=== PATIENT | male | born 1960 | race American Indian/Alaskan Native ===

== ENCOUNTER 2019-02-27 12:16 | Inpatient (IN) ==
--- NOTE | 2019-02-27 12:44 | Emergency Department Note ---
General Adult HPI - General Chief complaint: Weakness Stated complaint: abdominal swelling, weakness Time Seen by Provider: 02/27/19 12:19 Source: patient Mode of arrival: ambulatory Limitations: no limitations - History of Present Illness HPI Narrative: 58-year-old male patient presents to emergency department with recurrent abdominal swelling and tenderness. Nori has a long and protracted history of end-stage liver disease. He's been evaluated in our emergency department twice since 02/19. Each time it was for weakness and abdominal swelling. He underwent paracentesis during each visit. The first time they got over a 7 liters of fluid and the second time they removed 9 L of fluid from his abdomen. Unfortunately, he tells over the last 24 hours the abdominal bloating and pain have recurred. He is currently scheduled to see a color receiver at the end of next week to help manage his endstage liver disease. He denies any systemic fever, sweats, chills, shortness of breath, chest pain, palpitations, nausea, vomiting, diarrhea, or focal weakness. He tells me he had 2 bowel movements earlier today and reports "soft". He denies hematemesis, hematochezia, or hematuria. - Related Data Home Medications Medication Instructions Recorded Confirmed diltiazem ER 120 mg capsule,24 120 mg PO QDAY 01/09/18 07/03/18 hr,extended release furosemide 20 mg tablet 40 mg PO ONCE tab 01/09/18 02/27/19 gabapentin 300 mg capsule 300 mg PO TID 01/09/18 07/03/18 ibuprofen 600 mg tablet 600 mg PO QID PRN 01/09/18 07/03/18 multivitamin tablet 1 tab PO QDAY 01/09/18 07/03/18 omeprazole 20 mg capsule,delayed 20 mg PO QDAY 01/09/18 07/03/18 release potassium chloride ER 20 mEq 20 meq PO QDAY 01/09/18 07/03/18 tablet,extended release thiamine HCl (vitamin B1) 100 mg 100 mg PO QDAY 01/09/18 07/03/18 tablet Mometasone/Formoterol [Dulera 100 2 puff IH BID 01/19/18 07/03/18 Mcg/5 Mcg Inhaler] Spironolactone [Aldactone] 75 mg PO DAILY 06/07/18 02/27/19 Inflatable 15" Cushion 1 mg .ROUTE .MEDSUPPLY 02/27/19 02/27/19 Rifaximin [Xifaxan] 550 mg PO DAILY 02/27/19 02/27/19 buPROPion [Wellbutrin] 75 mg PO DAILY 02/27/19 02/27/19 Allergies Allergy/AdvReac Type Severity Reaction Status Date / Time No Known Drug Allergies Allergy Verified 02/27/19 12:18 Review of Systems All systems ED: reviewed and negative except as stated. Past Medical History - Past Medical History Medical history: Reports: atrial fibrillation, liver disease (end stage), other (alcohol). Denies: DVT, myocardial infarction, pulmonary embolus Psychiatric history: Reports: anxiety, depression - Social History smoking status: Former smoker Alcohol use: Reports: None (For approximately 1 year. Previously I believe was heavier.) Drug use: Reports: none, marijuana (Daily smoker) Physical Exam Limitations: no limitations General appearance: alert, in no apparent distress Head: atraumatic, normocephalic Eye: Present: normal appearance, PERRL, EOMI. Absent: scleral icterus, conjunctival injection ENT: Present: normal oropharynx, mucous membranes moist Neck: Present: trachea midline. Absent: lymphadenopathy Chest: Present: symmetric chest wall rise Respiratory: Present: normal lung sounds bilaterally. Absent: respiratory distress, wheezes, stridor, accessory muscle use, prolonged expiratory phase Cardiovascular: Present: regular rate, normal rhythm. Absent: systolic murmur, diastolic murmur Abdominal: Present: soft, distention, tenderness (to the prior paracentesis puncture sites to the right flank.), diminished bowel sounds (bowel sounds are hard to auscultate due to his large abdomen.), ascites (has considerable fluid shifts with manipulation of his abdomen.), other (high-pitched tympanic sounds heard during percussion of the right upper and lower abdomen.). Absent: guarding Extremities: Present: normal inspection, full ROM, normal capillary refill, pedal edema (+2 pitting edema from ankles up to just below the knees bila teral.). Absent: calf tenderness Back: Present: normal inspection Neurological: Present: alert, oriented X3. Absent: motor sensory deficit Psychiatric: Present: normal affect, normal mood Skin: Present: warm, dry Course Course Narrative: Patient presents to the emergency Department and a history of physical exam was performed. IV was established and laboratory studies were drawn. Repeat ultrasound of the abdomen was obtained showing ongoing moderate simple ascites within the abdomen and pelvis. Paracentesis was ordered and performed yielding 6.6 L of simple appearing slightly hemorrhagic ascites fluid. A sample of this is being sent to lab for ART DISPLAY MAKER and cell count. Upon reevaluation the patient is resting comfortable in mother's room [facility] and feels "a little better". Patient was given 25 mg albumin IV. Review his laboratory studies show the following: CBC with WBC 12.0, RBC 3.75, hemoglobin 11.2, hematocrit 34.0, platelet count 112, 83% segs. No bands. Abnormal RBC morphology. PT 15.6, INR 1.2, PTT 32, CMP showing BUN 25, glucose 122, calcium 8.1, total bilirubin 1.8, AST 48, ALT 70, alkaline phosphatase 164, albumin 3.0. Peritoneal fluid cell count shows cloudy, pink-colored fluid with considerable greater than 50,000 RBCs. Total cell count was 100. Nucleated cells 1126. Neutrophils 66. Lymphocytes 19. Macrophages 15. No other cells reported. Gram stain results showed many polys and few mononuclear WBCs. No organisms were identified. I reached out to the hospitalist (Dr. Joel) about possible admission due to the severity of the patient's symptoms and need for repeat paracentesis. At this time the hospitalist recommended that we optimize outpatient therapy with ensuring he is on his diuretics. He did recommend IV Lasix as a one-time dose prior to discharge. He mentioned discussing the patient's diet ensuring that he is not taking in too much sodium. He also recommended that he would need to see a color receiver for other interventions. I discussed all these findings with the patient at this time he does mention these eating "not very good". He tends to eat a lot of hamburgers. We discussed sodium and his requirement to ingest a low-sodium diet (< 1500 mg). We discussed maximizing his medication utilization. He presents with an entire pill box full of his medications. He is currently supposedly taking her Lasix and spironolactone he was encouraged to do this as an outpatient. Patient was given 60 mg of Lasix IVP. Upon reevaluation patient admits to being out twice to void. He has had an average of 500 mL per time. He is resting comfortably on the emergency room gurney. I reviewed his peritoneal findings once again with my collaborating physician prior to discharge. At this time it was recommended that I speak to either the hospitalist or a gastrologist for further recommendations due to the increased blood cell count in today's peritoneal fluid. I spoke to GI specialist out of [facility] (Dr. Chaudhari) who reviewed the peritoneal findings with me. At this time he did mention that a traumatic tap (greater than 50,000 RBCs) excuse the white blood cell count. At this time he recommended either inpatient management with IV antibiotics or very close outpatient follow-up. He recommended either ceftriaxone IV or ciprofloxacin by mouth. I discussed these findings with the patient at this time he is somewhat hesitant to go home. I reached out to our hospitalist once again about the patient's possible need for admission. At this time Dr. Joel is going to admit the patient. All other orders are treatment decisions will be carried out by the hospitalist during his inpatient stay. Vital Signs Temperature 99.1 F H 02/27/19 12:17 Pulse Rate 100 H 02/27/19 12:17 Respiratory Rate 18 02/27/19 12:17 Blood Pressure 117/79 02/27/19 12:17 Pulse Oximetry (%) 97 02/27/19 12:17 Temperature 99.1 F H 02/27/19 12:17 Pulse Rate 89 02/27/19 20:07 Respiratory Rate 18 02/27/19 19:53 Blood Pressure 126/72 02/27/19 20:02 Pulse Oximetry (%) 93 02/27/19 20:07 Medical Decision Making - Lab Data Lab results reviewed: Yes I reviewed the patient's lab results. Result diagrams: 02/27/19 12:44 02/27/19 12:44 Lab Results 02/27/19 02/27/19 02/27/19 Range/Units 12:44 12:44 12:44 WBC 12.0 H (4.5-11.0) K/mcL RBC 3.75 L (4.50-5.90) M/mcL Hgb 11.2 L (13.5-16.5) g/dL Hct 34.0 L (41.0-55.0) % MCV 90.6 (80.0-100.0) fL MCH 29.9 (26.0-34.0) pg MCHC 33.0 (31.0-36.0) g/dL RDW 15.3 H (11.5-14.5) % Plt Count 112 L (140-440) K/mcL MPV 7.3 L (7.4-10.4) fL Total Counted 100 Seg Neutrophils % 83 H (38-78) % Band Neutrophils % Not Reportable Lymphocytes % 10 L (15-49) % Monocytes % (Manual) 7 (1-12) % Platelet Estimate Decreased A (NORMAL) RBC Morphology Abnorm A (NORMAL) Polychromasia Occ A (NONE SEEN) PT 15.6 H (11.9-14.5) sec INR 1.2 H (0.9-1.1) APTT 32 (20-37) sec Sodium 137 (133-145) mmol/L Potassium 4.2 (3.3-5.1) mmol/L Chloride 103 (96-108) mmol/L Carbon Dioxide 25 (22-30) mmol/L Anion Gap 9.0 (8-16) BUN 25 H (6-20) mg/dl Creatinine 0.7 (0.7-1.2) mg/dl GFR Calculation 103 Glucose 122 H (70-105) mg/dL Calcium 8.1 L (8.6-10.4) mg/dl Total Bilirubin 1.8 H (0.0-1.0) mg/dL AST 48 H (0-37) U/l ALT 70 H (0-40) U/l Alkaline Phosphatase 164 H (39-117) U/L Total Protein 6.1 (5.9-8.4) gm/dL Albumin 3.0 L (3.2-5.2) gm/dL Globulin 3.1 (2.2-3.7) gm/dL Albumin/Globulin Ratio 1.0 (1.0-2.3) Urine Color Urine Appearance Urine pH (5.0-9.0) Ur Specific [place] (1.000-1.035) Urine Protein (NEG) mg/dL Urine Glucose (UA) (NEG) mg/dL Urine Ketones (NEG) mg/dL Urine Occult Blood (<0.03) mg/dL Urine Nitrate (NEG) Urine Bilirubin (NEG) mg/dL Urine Urobilinogen (NEG) mg/dL Ur Leukocyte Esterase (NEG) /uL Urine RBC (0-1) /hpf Urine WBC (0-4) /hpf Ur Squamous Epith Cells (0-4) /hpf Urine Bacteria (0) /hpf Urine Mucus (0) /hpf Fluid Source Fluid Color Fluid Appearance Fluid RBC /cumm Fluid Tot Cell Count Fluid Nucleated Cells /cumm Fluid Neutrophils % Fluid Lymphocytes % Fluid Monocytes Fluid Eosinophils Fluid Basophils Fluid Plasma Cells Fluid Macrophages % Fld Mesothelial Cells 02/27/19 02/27/19 Range/Units 14:58 16:00 WBC (4.5-11.0) K/mcL RBC (4.50-5.90) M/mcL Hgb (13.5-16.5) g/dL Hct (41.0-55.0) % MCV (80.0-100.0) fL MCH (26.0-34.0) pg MCHC (31.0-36.0) g/dL RDW (11.5-14.5) % Plt Count (140-440) K/mcL MPV (7.4-10.4) fL Total Counted Seg Neutrophils % (38-78) % Band Neutrophils % Lymphocytes % (15-49) % Monocytes % (Manual) (1-12) % Platelet Estimate (NORMAL) RBC Morphology (NORMAL) Polychromasia (NONE SEEN) PT (11.9-14.5) sec INR (0.9-1.1) APTT (20-37) sec Sodium (133-145) mmol/L Potassium (3.3-5.1) mmol/L Chloride (96-108) mmol/L Carbon Dioxide (22-30) mmol/L Anion Gap (8-16) BUN (6-20) mg/dl Creatinine (0.7-1.2) mg/dl GFR Calculation Glucose (70-105) mg/dL Calcium (8.6-10.4) mg/dl Total Bilirubin (0.0-1.0) mg/dL AST (0-37) U/l ALT (0-40) U/l Alkaline Phosphatase (39-117) U/L Total Protein (5.9-8.4) gm/dL Albumin (3.2-5.2) gm/dL Globulin (2.2-3.7) gm/dL Albumin/Globulin Ratio (1.0-2.3) Urine Color Yellow Urine Appearance Clear Urine pH 6.0 (5.0-9.0) Ur Specific [place] 1.016 (1.000-1.035) Urine Protein Neg (NEG) mg/dL Urine Glucose (UA) Negative (NEG) mg/dL Urine Ketones Neg (NEG) mg/dL Urine Occult Blood 0.03 A (<0.03) mg/dL Urine Nitrate Neg (NEG) Urine Bilirubin Neg (NEG) mg/dL Urine Urobilinogen 4.0 A (NEG) mg/dL Ur Leukocyte Esterase Neg (NEG) /uL Urine RBC 0 (0-1) /hpf Urine WBC < 1 (0-4) /hpf Ur Squamous Epith Cells < 1 (0-4) /hpf Urine Bacteria 0 (0) /hpf Urine Mucus Few (0) /hpf Fluid Source Peritoneal Fluid Color [place] Fluid Appearance Cloudy Fluid RBC < 12850 /cumm Fluid Tot Cell Count 100 Fluid Nucleated Cells 1126 /cumm Fluid Neutrophils 66 % Fluid Lymphocytes 19 % Fluid Monocytes Not Reportable Fluid Eosinophils Not Reportable Fluid Basophils Not Reportable Fluid Plasma Cells Not Reportable Fluid Macrophages 15 % Fld Mesothelial Cells Not Reportable - Radiology Data Radiology results reviewed: Yes I reviewed the patient's radiology results. Ordering Physician: Roberto Lyn PA-C Date of Service: 02/27/19 Procedure(s): US abdomen limited Accession Number(s): [id number] CLINICAL INFORMATION: Possible Ascites COMPARISON: None. FINDINGS: Moderate ascites seen throughout the abdomen and pelvis IMPRESSION: Moderate simple ascites throughout the abdomen and pelvis. Interpreted and Authenticated by: Armando Mera 02/27/19 Ordering Physician: Roberto Lyn PA-C Date of Service: 02/27/19 Procedure(s): US paracentesis abd w/image Accession Number(s): [id number] Ultrasound-guided paracentesis Clinical history moderate recurrent ascites Technique: The procedure and risks including possibility of bleeding, infection, bowel and parenchymal organ perforation were explained the patient. He understood and wished to proceed. Corrections Nurse scanning demonstrated Ascites in the right lower quadrant which was free of bowel. The skin was marked, prepped and locally anesthetized 1% lidocaine to the level of the parietal peritoneum using a 25-gauge needle. A 18-gauge LEAFEReh needle was then placed under sonographic guidance into the ascites and 6.6 L of slightly hemorrhagic ascites was evaluated. The needle was removed. Postprocedure scanning shows minimal residual ascites. No apparent complication - patient tolerated procedure well. IMPRESSION: Successful ultrasound-guided paracentesis yielding 6.6 L of simple appearing slightly hemorrhagic ascites. Postprocedure scanning shows only minimal residual fluid. Patient tolerated procedure well without apparent complication Interpreted and Authenticated by: Armando Mera 02/27/19 Disposition Pt seen by AUTOMOBILE LEASING SUPERVISOR/PA only: Yes Clinical Impression: Ascites due to alcoholic cirrhosis, End stage liver disease Disposition: Xfer As Inpt ([facility] Condition: Good Instructions: Ascites (ED) Additional Instructions: At this time patient is going be admitted to the hospital under the care of Dr. Montejo. All other treatment decisions or orders will be carried out by the hospitalist. Referrals: Humberto Tripathi ARNP [Primary Care Provider] - Time of Disposition: 20:27
[2019-02-27 13:12] LABS: Hemoglobin 11.2 g/dL (13.5-16.5); Mean Cell Volume 90.6 fL (80.0-100.0); Mean Platelet Volume 7.3 fL (7.4-10.4); Platelet Count 112 K/mcL (140-440); RBC 3.75 M/mcL (4.50-5.90); Red Cell Distribution Width 15.3 % (11.5-14.5)
[2019-02-27] MEDS ORDERED: ALBUMIN HUMAN 25 GM/100 ML BAG IV ONE ×2 (13:16→14:26)
[2019-02-27] MEDS ORDERED: ALBUMIN HUMAN 12.5 GM/50 ML BAG IV ONE (13:21)
[2019-02-27 13:22] LABS: INR 1.2 (0.9-1.1); Prothrombin Time 15.6 sec (11.9-14.5)
[2019-02-27 13:36] LABS: Lymphocytes % 10 % (15-49); Monocytes % (Manual) 7 % (1-12); Platelet Estimate DECREASED (NORMAL); Polychromasia OCC (NONE SEEN); RBC Morphology ABNORM (NORMAL); Segmented Neutrophils % 83 % (38-78)
[2019-02-27 13:41] LABS: ALT/SGPT 70 U/l (0-40); AST/SGOT 48 U/l (0-37); Alkaline Phosphatase 164 U/L (39-117); Bilirubin,Total 1.8 mg/dL (0.0-1.0); Blood Urea Nitrogen 25 mg/dl (6-20); Calcium 8.1 mg/dl (8.6-10.4); Carbon Dioxide 25 mmol/L (22-30); Chloride 103 mmol/L (96-108); Globulin 3.1 gm/dL (2.2-3.7); Glomerular Filtration Rate 103; Glucose 122 mg/dL (70-105)
--- NOTE | 2019-02-27 14:10 | Ultrasound Report ---
CLINICAL INFORMATION: Possible Ascites COMPARISON: None. FINDINGS: Moderate ascites seen throughout the abdomen and pelvis IMPRESSION: Moderate simple ascites throughout the abdomen and pelvis. Interpreted and Authenticated by: Armando Mera 02/27/19
--- NOTE | 2019-02-27 14:31 | Ultrasound Report ---
Ultrasound-guided paracentesis Clinical history moderate recurrent ascites Technique: The procedure and risks including possibility of bleeding, infection, bowel and parenchymal organ perforation were explained the patient. He understood and wished to proceed. Braille Typist scanning demonstrated Ascites in the right lower quadrant which was free of bowel. The skin was marked, prepped and locally anesthetized 1% lidocaine to the level of the parietal peritoneum using a 25-gauge needle. A 18-gauge Yueh needle was then placed under sonographic guidance into the ascites and 6.6 L of slightly hemorrhagic ascites was evaluated. The needle was removed. Postprocedure scanning shows minimal residual ascites. No apparent complication - patient tolerated procedure well. IMPRESSION: Successful ultrasound-guided paracentesis yielding 6.6 L of simple appearing slightly hemorrhagic ascites. Postprocedure scanning shows only minimal residual fluid. Patient tolerated procedure well without apparent complication Interpreted and Authenticated by: Armando Mera 02/27/19
[2019-02-27] MEDS ORDERED: FUROSEMIDE 100 MG/10 ML VIAL IV ONE (16:10)
[2019-02-27 17:01] LABS: Appearance, Body Fluid CLOUDY; Color, Body Fluid PINK; Nucleated Cells,Body Fld 1126 /cumm; RBC, Body Fluid < 50000 /cumm
[2019-02-27 17:11] LABS: Total Cell Count Body Fld 100
[2019-02-27 18:58] LABS: Appearance,Urine CLEAR; Bacteria,Urine 0 /hpf (0); Bilirubin,Urine NEG (NEG); Color,Urine YELLOW; Glucose,Urine (UA) NEGATIVE (NEG); Ketones,Urine NEG (NEG); Leukocyte Esterase,Urine NEG /uL (NEG); Mucus,Urine FEW /hpf (0); Nitrate,Urine NEG (NEG); Protein,Urine NEG (NEG); Specific Gravity,Urine 1.016 (1.000-1.035); Urine Blood 0.03 mg/dL (<0.03); Urine RBC 0 /hpf (0-1); Urine Squamous Epithelial Cell < 1 /hpf (0-4); Urine WBC < 1 /hpf (0-4)
--- NOTE | 2019-02-27 20:27 | Internal Med History&Physical ---
Medical - H&P: [facility] Patient information: Note initiated : 02/27/19 at 8:22 pm Service Date, if different from initiated Date: [] Patient: Dallas Darling a 58 y/o M admitted on for Abdominal Swelling, Weakness. Chief Complaint: [] History of present illness: Mr. Darling is a 58 year old M who presents to ED with abdominal swelling and weakness. 3 weeks ago he started swelling in feet/legs then abdomen. on he came in and had a paracentesis of 9L's and again on the of 9L's. since that time he has had recurrent ascites and came in today where he had 6.6L's removed. has abdominal discomfort from swelling but not severe pain and it is relieved after paracentesis. no fevers/chills. no confusion. His ascites came back with greater than 250 PMN's. case was discussed with GI specialist who discussed treating outpt with cipro vs treating inpt. given his recurrent ED visits will treat inpt and likely repeat paracentsis or u/s evaluation of in 48hrs. he has mild leukocytosis. Review of Systems: pertinent positives as above. denies headache/fever/chills/nausea/vomiting/chest or abdominal pain/cough/dyspnea/diarrhea. remaining 10 point ROS negative Medical - H&P: PMH Medical history: Medical History (Last Updated 02/20/19 @ 13:38 by Jarett Hudson DO) Psoriasis (Chronic) Metacarpal bone fracture (Chronic 10/24/11) Finger dislocation (Chronic 10/05/09) History of hepatitis A (Chronic) Cellulitis (Chronic) Morbid obesity (Chronic) Bilateral presbyopia (Chronic) Regular astigmatism, bilateral (Chronic) Hypermetropia of both eyes (Chronic) Partial retinal tear without detachment (Chronic) After-cataract with vision obscured (Chronic) Headache (Chronic) End stage liver disease (Chronic) Broken skin (Chronic) Anasarca (Chronic) Atrial fibrillation with rapid ventricular response (Chronic) Acute bronchitis (Chronic) Edema (Chronic) Infestation by Sarcoptes scabiei td hominis (Chronic) Chronic obstructive lung disease (Chronic) skilled nursing (current) use of anticoagulants (Chronic) Chronic low back pain (Chronic) Allergic rhinitis (Chronic) GERD (gastroesophageal reflux disease) (Chronic) Abnormal LFTs (liver function tests) (Chronic) Hepatomegaly (Chronic) 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) Hepatitis C (Chronic) Neck pain (Chronic) 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) Atrial fibrillation (Chronic) Alcoholic cirrhosis (Chronic) Nausea (Chronic) Phimosis (Chronic ~09/2017) Lower extremity edema (Acute) Alcohol abuse (Acute) Past Surgical History (Last Updated 07/03/18 @ 13:26 by Mary Church CMA) History of circumcision (Acute) H/O endoscopy (Chronic) History of cataract surgery (Chronic) Family History (Last Reviewed 07/03/18 @ 13:26 by Mary Church CMA) parents with DM's and father with cirrhosis Social History (Last Updated 07/03/18 @ 13:29 by Daniel Valdes MD) q tobacco 8yrs ago no etoh in 18mos uses walker uses [facility] - H&P: Meds Home Medications Medication Instructions Recorded Confirmed Type diltiazem ER 120 mg capsule,24 120 mg PO QDAY 01/09/18 02/27/19 History hr,extended release furosemide 20 mg tablet 40 mg PO ONCE tab 01/09/18 02/27/19 History gabapentin 300 mg capsule 300 mg PO TID 01/09/18 02/27/19 History ibuprofen 600 mg tablet 600 mg PO QID PRN 01/09/18 02/27/19 History multivitamin tablet 1 tab PO QDAY 01/09/18 02/27/19 History omeprazole 20 mg capsule,delayed 20 mg PO QDAY 01/09/18 02/27/19 History release potassium chloride ER 20 mEq 20 meq PO QDAY 01/09/18 02/27/19 History tablet,extended release thiamine HCl (vitamin B1) 100 mg 100 mg PO QDAY 01/09/18 02/27/19 History tablet Mometasone/Formoterol [Dulera 100 2 puff IH BID 01/19/18 02/27/19 History Mcg/5 Mcg Inhaler] Spironolactone [Aldactone] 75 mg PO DAILY 06/07/18 02/27/19 History Inflatable 15" Cushion 1 mg .ROUTE .MEDSUPPLY 02/27/19 02/27/19 History Lactulose [Cephulac] 40 gm PO BID 02/27/19 02/27/19 History Rifaximin [Xifaxan] 550 mg PO DAILY 02/27/19 02/27/19 History buPROPion [Wellbutrin] 75 mg PO DAILY 02/27/19 02/27/19 History Allergies Allergy/AdvReac Type Severity Reaction Status Date / Time No Known Drug Allergies Allergy Verified 02/27/19 12:18 Medical - H&P: Exam - Constitutional Vitals: Temp Pulse Resp BP Pulse Ox 99.1 F H 86 18 126/72 93 02/27/19 12:17 02/27/19 20:20 02/27/19 20:20 02/27/19 20:02 02/27/19 20:20 Exam: General: Alert, Awake, No acute Distress Eyes/N/T: EOMI, anisocoria , Head/Neck: neck supple, normocephalic atraumatic CV: RRR, No murmurs, normal s1/s2 Pulm: Clear b/l, no wheezing/rhonchi/rales Abd: soft, nontender, distended, +BS x4 Ext: no clubbing/cyanosis/edema Neuro: Alert, no focal deficits, moves all extremities, CN 2-12 grossly intact, symmetrical strength b/l upper/lower, sensations intact b/l upper/lower Skin: warm/dry Medical - H&P: Reslt - Labs CBC & Chem 7: 02/27/19 12:44 02/27/19 12:44 Labs: Short CBC 02/27/19 Range/Units 12:44 WBC 12.0 H (4.5-11.0) K/mcL Hgb 11.2 L (13.5-16.5) g/dL Hct 34.0 L (41.0-55.0) % Plt Count 112 L (140-440) K/mcL BMP 02/27/19 12:44 Sodium 137 Potassium 4.2 Chloride 103 Carbon Dioxide 25 BUN 25 H Creatinine 0.7 Glucose 122 H Calcium 8.1 L Liver Function 02/27/19 Range/Units 12:44 Total Bilirubin 1.8 H (0.0-1.0) mg/dL AST 48 H (0-37) U/l ALT 70 H (0-40) U/l Alkaline Phosphatase 164 H (39-117) U/L Albumin 3.0 L (3.2-5.2) gm/dL Urine 02/27/19 Range/Units 16:00 Urine Color Yellow Urine Appearance Clear Urine pH 6.0 (5.0-9.0) Ur Specific [place] 1.016 (1.000-1.035) Urine Protein Neg (NEG) mg/dL Urine Glucose (UA) Negative (NEG) mg/dL Medical - H&P: A/P - Narrative A/P Narrative: Assessment: *Probable SBP: PMNs >250 but do not have culture back yet *Ascites/Peripheral edema: 2/2 above with underlying etoh cirrosis *Etoh cirrhosis: no etoh in 18mos -follows with dr. Napoles -MELD=13(6%) *COPD (2L prn daytime) *KARLENE on CPAP: *Chr LBP: *GERD: * Plan: -Rocephin -pending cx -lasix/albumin -repeat abd u/s or paracentesis in 48hrs -f/u with dr. Cortez on monday -home CPAP -switch PPI to H2-andres -TEDs/elevate legs while in bed -ppx: lovenox full code
[2019-02-27] MEDS ORDERED: MOMETASONE IH SCH (21:25)
[2019-02-27] MEDS ORDERED: ONDANSETRON 4 MG/2 ML VIAL IV PRN (21:25)
[2019-02-27] MEDS ORDERED: PROMETHAZINE 25 MG/ML VIAL IV PRN (21:25)
[2019-02-27] MEDS ORDERED: [UNRECOGNIZED DRUG - OTHER] IH SCH (21:25)
[2019-02-27] MEDS ORDERED: IPRATROPIUM/ALBUTEROL 3 ML AMPUL.NEB NEB PRN (21:25)
[2019-02-27] MEDS ORDERED: FORMOTEROL IH SCH (21:25)
[2019-02-27] MEDS: GABAPENTIN 300 MG CAPSULE PO SCH (22:22)
[2019-02-27] MEDS ORDERED: LACTULOSE 20 GM/30 ML ORAL.SOL ONE (22:39)
[2019-02-27] MEDS ORDERED: cefTRIAXone 1 GM VIAL ONE (22:39)
[2019-02-27] MEDS: DOCUSATE SODIUM 100 MG CAPSULE PO SCH (22:46)
[2019-02-27] MEDS: LACTULOSE 20 GM/30 ML ORAL.SOL PO SCH (22:46)
[2019-02-27] MEDS: cefTRIAXone 2 GM in DEXTROSE 5% IN WATER 50 ML IV SCH (22:46)
[2019-02-27] MEDS: FAMOTIDINE 20 MG TABLET PO SCH (22:46)
[2019-02-27] MEDS: 0.9 % SODIUM CHLORIDE 10 ML SYRINGE IV SCH (22:50)
[2019-02-27 22:52] LABS: Total Protein,Peritoneal Fluid 0.3 gm/dL
[2019-02-27 23:10] LABS: INR 1.3 (0.9-1.1); Prothrombin Time 15.9 sec (11.9-14.5)
[2019-02-28] MEDS ORDERED: HYDROcodone/APAP 10/325MG TABLET PO ONE (01:31)
[2019-02-28] MEDS: HYDROcodone/APAP 10/325MG TABLET PO SCH ×4 (01:31→19:20)
[2019-02-28] MEDS: 0.9 % SODIUM CHLORIDE 10 ML SYRINGE IV SCH ×3 (05:24→21:10)
[2019-02-28 07:14] LABS: Basophils # (Auto) 0 K/mcL (0.0-0.3); Basophils % (Auto) 0 % (0.0-2.0); Eosinophils # (Auto) 0 K/mcL (0.0-0.7); Eosinophils % (Auto) 0.5 % (0.0-7.0); Granulocytes % (Auto) 79.2 % (38.0-78.0); Hematocrit 28.7 % (41.0-55.0); Hemoglobin 9.5 g/dL (13.5-16.5); Lymphocytes # (Auto) 0.7 K/mcL (1.5-4.8); Lymphocytes % (Auto) 9.9 % (15.5-49.0); Mean Cell Volume 91.1 fL (80.0-100.0); Mean Corpuscular HGB Conc 33.2 g/dL (31.0-36.0); Mean Platelet Volume 7.5 fL (7.4-10.4); Monocytes # (Auto) 0.7 K/mcL (0.1-0.9); Monocytes % (Auto) 10.4 % (1.0-12.0); Platelet Count 95 K/mcL (140-440); RBC 3.15 M/mcL (4.50-5.90); Red Cell Distribution Width 15.1 % (11.5-14.5); WBC 7.2 K/mcL (4.5-11.0)
--- NOTE | 2019-02-28 07:21 | Internal Med Progress Note ---
Medical - PN: Subj Patient information: Note initiated : 02/28/19 at 7:15 am Service Date, if different from initiated Date: [] Patient: Dallas Darling a 58 y/o M admitted on 02/27/19 for Abdominal Swelling, Weakness. Chief Complaint: [] Interval history: Mr. Darling is a 58 year old M who presents to ED with abdominal swelling and weakness. 3 weeks ago he started swelling in feet/legs then abdomen. on he came in and had a paracentesis of 9L's and again on the of 9L's. since that time he has had recurrent ascites and came in today where he had 6.6L's removed. has abdominal discomfort from swelling but not severe pain and it is relieved after paracentesis. no fevers/chills. no confusion. His ascites came back with greater than 250 PMN's. case was discussed with GI specialist who discussed treating outpt with cipro vs treating inpt. given his recurrent ED visits will treat inpt and likely repeat paracentsis or u/s evaluation of in 48hrs. he has mild leukocytosis. 02/28 Doing much better today. Feels like his swelling is improved in his legs. No abdominal pain. No nausea vomiting. Occasional cough but no other complaints. Review of Systems: denies headache/fever/chills/nausea/vomiting/chest or abdominal pain/dyspnea/diarrhea. Otherwise see above. - Constitutional Vitals: Vital Signs Temp Pulse Resp BP Pulse Ox 99.0 F 80 20 115/74 94 02/28/19 04:00 02/28/19 06:51 02/28/19 04:00 02/28/19 04:00 02/28/19 04:00 Period Temp Pulse Resp BP Sys/Estrella Pulse Ox Last 24 Hr 98.3 F-99.1 F 79-100 18-20 111-146/64-81 92-99 Intake and Output 02/27/19 02/28/19 02/28/19 21:59 05:59 13:59 Intake Total 200 1010 Output Total 1850 975 Balance -1650 35 Weight 102.965 kg Intake & Output: Intake & Output 02/27/19 02/28/19 02/28/19 21:59 05:59 13:59 Intake Total 200 1010 Output Total 1850 975 Balance -1650 35 Weight 102.965 kg Intake: IV 200 50 Rocephin 2 gm In Dextrose 5% in 50 Water 50 ml @ 100 mls/hr IV Q24H [facility] Rx#:[id number] Oral 960 Output: Void Amount 1850 975 Other: Meal Dinner Percent of Meal Consumed 100% Feeding Ability Independent Urine Appearance Clear Urine Color Dark Yellow Exam: General: Alert, Awake, No acute Distress Eyes/N/T: EOMI, Head/Neck: neck supple, CV: RRR, No murmurs, Pulm: Clear b/l, no wheezing/rhonchi/rales Abd: soft, nontender, distended, +BS x4 Ext: no clubbing/cyanosis, 1-2+ RLE, 2-3+ LLE Neuro: Alert, no focal deficits, moves all extremities, Skin: warm/dry Medical - PN: Obj Da - Labs CBC & Chem 7: 02/28/19 04:29 02/28/19 04:29 Labs: Abnormal Lab Results 02/28/19 02/27/19 02/27/19 04:29 22:09 16:00 WBC RBC 3.15 L Hgb 9.5 L Hct 28.7 L RDW 15.1 H Plt Count 95 L MPV Gran % 79.2 H Lymph % (Auto) 9.9 L Lymph # (Auto) 0.7 L Seg Neutrophils % Lymphocytes % Platelet Estimate RBC Morphology Polychromasia PT 15.9 H INR 1.3 H BUN Glucose Calcium Total Bilirubin AST ALT Alkaline Phosphatase Albumin Urine Occult Blood 0.03 A Urine Urobilinogen 4.0 A 02/27/19 02/27/19 02/27/19 12:44 12:44 12:44 WBC 12.0 H RBC 3.75 L Hgb 11.2 L Hct 34.0 L RDW 15.3 H Plt Count 112 L MPV 7.3 L Gran % Lymph % (Auto) Lymph # (Auto) Seg Neutrophils % 83 H Lymphocytes % 10 L Platelet Estimate Decreased A RBC Morphology Abnorm A Polychromasia Occ A PT 15.6 H INR 1.2 H BUN 25 H Glucose 122 H Calcium 8.1 L Total Bilirubin 1.8 H AST 48 H ALT 70 H Alkaline Phosphatase 164 H Albumin 3.0 L Urine Occult Blood Urine Urobilinogen Meds: Medications Hydrocodone Bitart/Acetaminophen ([place] 10/325mg) 1 tab PO Q6H [facility] Last Admin: 02/28/19 01:31 Dose: 1 tab Documented by: Albuterol/Ipratropium (Duoneb) 3 ml NEB Q4HRT PRN PRN Reason: Bronchospasm Bupropion HCl (Wellbutrin) 75 mg PO DAILY [facility] Diltiazem HCl (Cardizem Cd) 120 mg PO QDAY [facility] Docusate Sodium (Colace) 100 mg PO BID [facility] Last Admin: 02/27/19 22:46 Dose: Not Given Documented by: Enoxaparin Sodium (Lovenox) 40 mg SQ DAILY [facility] Famotidine (Pepcid) 20 mg PO BID [facility] Last Admin: 02/27/19 22:46 Dose: Not Given Documented by: Furosemide (Lasix) 40 mg IV ONCE ONE Stop: 02/28/19 08:01 Gabapentin (Neurontin) 300 mg PO TID [facility] Last Admin: 02/27/19 22:22 Dose: Not Given Documented by: Albumin Human (Buminate) 12.5 gm in 50 mls @ 100 mls/hr IV ONCE ONE Stop: 02/28/19 08:29 Ceftriaxone Sodium 2 gm/ (Dextrose) 50 mls @ 100 mls/hr IV Q24H [facility] Stop: 03/04/19 21:24 Last Infusion: 02/28/19 01:32 Dose: Infused Documented by: Lactulose (Cephulac) 40 gm PO BID [facility] Last Admin: 02/27/19 22:46 Dose: 40 gm Documented by: Ondansetron HCl (Zofran) 4 mg IV Q6HP PRN PRN Reason: Nausea And Vomiting Dulera 100 Mcg/5 Mcg (Inhaler) 2 dose INH BID [facility] Potassium Chloride (Kdur) 20 meq PO QAMCC [facility] Promethazine HCl (Phenergan) 12.5 mg IV Q6HP PRN PRN Reason: Nausea And Vomiting Sodium Chloride (Saline Flush) 10 ml IV Q8 [facility] Last Admin: 02/28/19 05:24 Dose: 10 ml Documented by: Spironolactone (Aldactone) 100 mg PO DAILY [facility] Thiamine HCl (Vitamin B1) 100 mg PO QDAY [facility] Medical - PN: A/P - Time Spent With Patient Total time spent is greater than 50% in coordination of care (as documented) at patient's floor/unit and/or counseling patient: - Narrative A/P Narrative: Assessment: *Probable SBP: PMNs >250 but do not have culture back yet, -leukocytosis resolved *Ascites/Peripheral edema: 2/2 above with underlying etoh cirrosis *Etoh cirrhosis: no etoh in 18-months per pt -follows with dr. Napoles -MELD=13(6%) *COPD (2L prn daytime) *KARLENE on CPAP: *Chr LBP: *GERD: * Plan: -Rocephin -pending cx -lasix today - may repeat abd u/s or paracentesis in 48hrs from initial test -f/u with dr. Wong on monday -home CPAP -switch PPI to H2-andres -TEDs/elevate legs while in bed -ppx: lovenox full code Medical - PN: Qual - VTE Deep Vein Thrombosis/Pulmonary Embolism Present on Admission: No
[2019-02-28 07:37] LABS: ALT/SGPT 61 U/l (0-40); AST/SGOT 52 U/l (0-37); Albumin/Globulin Ratio 1.2 (1.0-2.3); Alkaline Phosphatase 157 U/L (39-117); Bilirubin,Direct 0.7 mg/dL (0.0-0.3); Bilirubin,Total 1.7 mg/dL (0.0-1.0); Blood Urea Nitrogen 23 mg/dl (6-20); Carbon Dioxide 26 mmol/L (22-30); Chloride 97 mmol/L (96-108); Globulin 2.6 gm/dL (2.2-3.7); Glomerular Filtration Rate 103; Glucose 91 mg/dL (70-105); Lactate Dehydrogenase 266 U/L (94-250); Phosphorous 3.4 mg/dL (2.7-4.5); Triglycerides 51 mg/dl (<150); Uric Acid 3.1 mg/dL (2.5-8.0)
[2019-02-28] MEDS: POTASSIUM CHLORIDE 20 MEQ TABLET PO SCH (08:00)
[2019-02-28] MEDS ORDERED: FUROSEMIDE 40 MG/4 ML VIAL IV ONE ×2 (08:00→15:00)
[2019-02-28] MEDS ORDERED: ALBUMIN HUMAN 12.5 GM/50 ML BAG IV ONE (08:00)
[2019-02-28] MEDS: GABAPENTIN 300 MG CAPSULE PO SCH ×3 (08:20→21:09)
[2019-02-28] MEDS: THIAMINE 100 MG TABLET PO SCH (08:20)
[2019-02-28] MEDS: FAMOTIDINE 20 MG TABLET PO SCH ×2 (08:20→21:09)
[2019-02-28] MEDS: ENOXAPARIN 40 MG/0.4 ML SYRINGE SQ SCH (08:20)
[2019-02-28] MEDS: RIFAXIMIN 550 MG TABLET PO SCH (08:20)
[2019-02-28] MEDS: DOCUSATE SODIUM 100 MG CAPSULE PO SCH ×2 (08:20→21:09)
[2019-02-28] MEDS: SPIRONOLACTONE 25 MG TABLET PO SCH (08:21)
[2019-02-28] MEDS: DILTIAZEM 120 MG CAP.XL.24H PO SCH (08:21)
[2019-02-28] MEDS: LACTULOSE 20 GM/30 ML ORAL.SOL PO SCH ×2 (08:21→21:09)
[2019-02-28] MEDS ORDERED: LACTULOSE 20 GM/30 ML ORAL.SOL PO ONE (08:23)
[2019-02-28] MEDS ORDERED: buPROPion 75 MG TABLET PO SCH (09:00)
--- NOTE | 2019-02-28 12:47 | Ultrasound Report ---
CLINICAL INFORMATION: History of cirrhosis and ascites. Evaluate for portal vein thrombosis COMPARISON: None. FINDINGS: The liver is decreased in size with irregular cortical surface and inhomogeneous elevated echotexture compatible with cirrhosis. The portal vein is mildly enlarged - no evidence of thrombus. Normal hepatopedal flow direction appreciated. Hepatic veins are patent and demonstrate normal flow. IMPRESSION: Portal vein is patent with normal hepatopedal flow direction. Cirrhosis Interpreted and Authenticated by: Armando Mera 02/28/19
[2019-02-28] MEDS ORDERED: cefTRIAXone 2 GM VIAL ONE (14:41)
[2019-02-28] MEDS: cefTRIAXone 2 GM in DEXTROSE 5% IN WATER 50 ML IV SCH (14:45)
[2019-03-01] MEDS: HYDROcodone/APAP 10/325MG TABLET PO SCH ×2 (02:04→07:29)
[2019-03-01] MEDS: 0.9 % SODIUM CHLORIDE 10 ML SYRINGE IV SCH (05:46)
[2019-03-01] MEDS: POTASSIUM CHLORIDE 20 MEQ TABLET PO SCH (07:41)
--- NOTE | 2019-03-01 08:06 | Discharge Summary ---
Medical - DS: Prov Patient information: Note initiated : 03/01/19 at 8:03 am Service Date, if different from initiated Date: [] Patient: Dallas Darling 58 y/o M admitted on 02/27/19 for Abdominal Swelling, Weakness. Chief Complaint: [] Date of admission: 02/27/19 21:20 Discharge date: 03/01/19 Primary care physician: SOFÍA Hopkins Consults: 02/27/19 Consult to Physician [CONS] Stat Comment: Consulting Provider: Pillo Joel Reason For Exam: Physician to Consult Medical - DS: Meds - Discharge Medications Prescriptions: Spironolactone [Aldactone] 100 mg PO DAILY #30 tab Transmission Status: Pending to [facility] #[id number] Ciprofloxacin [Cipro] 500 mg PO BID #14 tab Transmission Status: Pending to [facility]ORE #[id number] Furosemide [Lasix] 40 mg PO DAILY #30 tab Transmission Status: Pending to [facility] #[id number] Famotidine [Pepcid] 20 mg PO BID #60 tab Transmission Status: Pending to [facility] #[id number] Active and Home Medications: Home Medications diltiazem HCl 120 mg capsule,24 hr,extended release 120 mg PO QDAY 01/09/18 [History Confirmed 02/27/19 Last Taken 02/27/19 09:00] gabapentin 300 mg capsule 300 mg PO TID 01/09/18 [History Confirmed 02/27/19 Last Taken 02/27/19 19:30] multivitamin 1 tab PO QDAY 01/09/18 [History Confirmed 02/27/19 Last Taken 02/27/19 09:00] potassium chloride 20 mEq tablet,extended release 10 meq PO QHS 01/09/18 [History Confirmed 02/27/19 Last Taken 02/27/19 19:30] thiamine HCl (vitamin B1) 100 mg tablet 100 mg PO QDAY 01/09/18 [History Confirmed 02/27/19 Last Taken 02/27/19 09:00] Mometasone/Formoterol [Dulera 100 Mcg/5 Mcg Inhaler] 2 puff IH BID PRN 01/19/18 [History Confirmed 02/27/19 Last Taken 01/24/18] HYDROcodone/ACETAMINOPHEN [Hydrocodone-Acetamin 10-325 mg] 1 tab PO Q6H 02/27/19 [History Confirmed 02/27/19 Last Taken 02/27/19 19:30] Lactulose [Cephulac] 40 gm PO BID 02/27/19 [History Confirmed 02/27/19 Last King en 02/27/19 09:00] Rifaximin [Xifaxan] 550 mg PO BID 02/27/19 [History Confirmed 02/27/19 Last Taken 02/27/19 19:30] buPROPion [Wellbutrin] 75 mg PO BID 02/27/19 [History Confirmed 02/27/19 Last Taken 02/27/19 19:30] Ciprofloxacin [Cipro] 500 mg PO BID #14 tab 03/01/19 [Rx Last Taken Unknown] Famotidine [Pepcid] 20 mg PO BID #60 tab 03/01/19 [Rx Last Taken Unknown] Furosemide [Lasix] 40 mg PO DAILY #30 tab 03/01/19 [Rx Last Taken Unknown] Spironolactone [Aldactone] 100 mg PO DAILY #30 tab 03/01/19 [Rx Last Taken Unknown] Medical - DS: Hosp Hospital Course: Discharge diagnosis *CNNA: PMNs >250 Cx negative, continue 7 day oral cipro. *Ascites/Peripheral edema: 2/2 above with underlying etoh cirrosis *Etoh cirrhosis: no etoh in 18-months per pt -follows with dr. Napoles 03/01 am -MELD=13(6%) *COPD (2L prn daytime) *KARLENE on CPAP: Brief hospital course Mr. Darling is a 58 year old M who presents to ED with abdominal swelling and weakness. 3 weeks ago he started swelling in feet/legs then abdomen. on he came in and had a paracentesis of 9L's and again on the 8th of 9L's. since that time he has had recurrent ascites and came in today where he had 6.6L's removed. has abdominal discomfort from swelling but not severe pain and it is relieved after paracentesis. no fevers/chills. no confusion. His ascites came back with greater than 250 PMN's. case was discussed with GI specialist who discussed treating outpt with cipro vs treating inpt. given his recurrent ED visits will treat inpt and likely repeat paracentsis or u/s evaluation of in 48hrs. he has mild leukocytosis. 02/28 Doing much better today. Feels like his swelling is improved in his legs. No abdominal pain. No nausea vomiting. Occasional cough but no other complaints. 03/01-patient doing well. No overnight events. No concerns per staff. Discharging today with follow-up with outpatient GI. Continue Aldactone/Lasix. Continue lactulose. Continue additional 7 days oral ciprofloxacin for CNNA Discharge diagnosis: . - Time Spent with Patient Total time spent providing and/or coordinating discharge services: Greater than 30 minutes Medical - DS: Exam - Constitutional Vitals: Vital Signs Temp Pulse Resp BP Pulse Ox 03/01/19 07:09 72 03/01/19 07:06 98.6 F 20 122/76 96 03/01/19 04:00 98.5 F 87 16 129/79 94 02/28/19 23:47 98.2 F 85 18 115/75 94 02/28/19 20:00 98.4 F 88 16 120/72 94 02/28/19 16:00 98.8 F 85 20 123/78 97 02/28/19 12:00 98.3 F 81 20 117/69 94 Intake and Output 02/28/19 03/01/19 03/01/19 21:59 05:59 13:59 Intake Total 800 700 Output Total 400 150 Balance 400 550 Intake: Oral 800 700 Output: Void Amount 400 150 Other: Urine Appearance Clear Urine Color Light Terri Light Terri # Bowel Movements 1 Weight 230 lb Medical - DS: Data Labs on day of discharge: Labs from last 24 hours 03/01/19 03/01/19 04:04 04:04 WBC Pending RBC Pending Hgb Pending Hct Pending MCV Pending MCH Pending MCHC Pending RDW Pending Plt Count Pending MPV Pending Sodium Pending Potassium Pending Chloride Pending Carbon Dioxide Pending Anion Gap Pending BUN Pending Creatinine Pending GFR Calculation Pending Glucose Pending Uric Acid Pending Calcium Pending Phosphorus Pending Magnesium Pending Total Bilirubin Pending Direct Bilirubin Pending GGT Pending AST Pending ALT Pending Alkaline Phosphatase Pending Lactate Dehydrogenase Pending Total Protein Pending Albumin Pending Globulin Pending Albumin/Globulin Ratio Pending Triglycerides Pending Preliminary micro results at discharge 02/27/19 14:58 Body Fluid Culture - Preliminary Peritoneal Fluid Medical - DS: A/P - Patient/Caregiver Discharge Instructions Activity: resume usual activities as tolerated Diet: Low Sodium (2gm) Additional Instructions: Follow-up Dr. Wong 03/18 9 AM Continue Lasix spironolactone continue lactulose as advised Continue ciprofloxacin for 7 more days Return to ER if abdominal pain, fever chills or mental status change noted Prescriptions: Spironolactone [Aldactone] 100 mg PO DAILY #30 tab Transmission Status: Pending to [facility] #[id number] Ciprofloxacin [Cipro] 500 mg PO BID #14 tab Transmission Status: Pending to [facility] #[id number] Furosemide [Lasix] 40 mg PO DAILY #30 tab Transmission Status: Pending to [facility] #[id number] Famotidine [Pepcid] 20 mg PO BID #60 tab Transmission Status: Pending to [facility] #[id number] - Follow up Plan Follow up with: Humberto Tripathi ARNP [Primary Care Provider] - Disposition: Home, Self-Care Prognosis: Good Rehab Potential: Fair I certify that the patient requires SNF services: No Overall status at discharge: patient is progressing back to baseline Medical - DS: Qual - VTE Deep Vein Thrombosis/Pulmonary Embolism Present on Admission: No
[2019-03-01] MEDS: LACTULOSE 20 GM/30 ML ORAL.SOL PO SCH (08:24)
[2019-03-01] MEDS: SPIRONOLACTONE 25 MG TABLET PO SCH (08:25)
[2019-03-01] MEDS: FAMOTIDINE 20 MG TABLET PO SCH (08:26)
[2019-03-01] MEDS: ENOXAPARIN 40 MG/0.4 ML SYRINGE SQ SCH (08:26)
[2019-03-01] MEDS: GABAPENTIN 300 MG CAPSULE PO SCH (08:26)
[2019-03-01] MEDS: DILTIAZEM 120 MG CAP.XL.24H PO SCH (08:26)
[2019-03-01] MEDS: THIAMINE 100 MG TABLET PO SCH (08:26)
[2019-03-01] MEDS: DOCUSATE SODIUM 100 MG CAPSULE PO SCH (08:26)
[2019-03-01] MEDS: RIFAXIMIN 550 MG TABLET PO SCH (08:26)
--- NOTE | 2019-03-01 15:10 | Non-GYN Cytology Report ---
NON PARATRANSIT DRIVER SPECIMEN NG DX CATEGORY Negative MICROSCOPIC DIAGNOSIS PERITONEAL FLUID, PARACENTESIS: -- MARKED ACUTE INFLAMMATION AND REACTIVE MESOTHELIAL CELLS. -- NO ATYPICAL OR MALIGNANT CELLS IDENTIFIED. (DMT:keren) MICROSCOPIC DESCRIPTION A thinprep monolayer slide, Santos-Giemsa stained cytospin slide, Diff Quik stained cytospin slide, H/E stained cytospin slide and a cell block slide are reviewed. Each contains numerous segmented neutrophils, few macrophages, lymphocytes, red blood cells and reactive mesothelial cells. No atypical or malignant cells are identified. (DMT:keren) CLINICAL HISTORY Abdominal swelling; weakness; ascites. EXTERNAL COMMENT ~850 mL pink fluid: 1 thinprep, 1 H/E, 1 Diff Quik, 1 Santos Giemsa, 1 cell block Electronically Signed by: David Roca M.D.
== END 2019-03-01 09:00 | disposition home or self-care (01) | DRG 434 ==
LOC: ED 12:16 → MEDSUR 21:18
PROVIDERS: ADMIT Internal Medicine; ATTEND Internal Medicine

== ENCOUNTER 2019-03-28 21:42 | Inpatient (IN) ==
[2019-03-28 23:08] LABS: Basophils # (Auto) 0 K/mcL (0.0-0.3); Basophils % (Auto) 0 % (0.0-2.0); Eosinophils # (Auto) 0.1 K/mcL (0.0-0.7); Granulocytes % (Auto) 74.5 % (38.0-78.0); Hematocrit 36.3 % (41.0-55.0); Hemoglobin 11.7 g/dL (13.5-16.5); Lymphocytes # (Auto) 1.5 K/mcL (1.5-4.8); Lymphocytes % (Auto) 15.8 % (15.5-49.0); Mean Cell Volume 84.4 fL (80.0-100.0); Mean Corpuscular HGB Conc 32.3 g/dL (31.0-36.0); Mean Platelet Volume 8.4 fL (7.4-10.4); Monocytes # (Auto) 0.8 K/mcL (0.1-0.9); Monocytes % (Auto) 8.7 % (1.0-12.0); Platelet Count 106 K/mcL (140-440); Red Cell Distribution Width 17.9 % (11.5-14.5); WBC 9.4 K/mcL (4.5-11.0)
[2019-03-28 23:52] LABS: ALT/SGPT 81 U/l (0-40); AST/SGOT 65 U/l (0-37); Albumin 2.6 gm/dL (3.2-5.2); Albumin/Globulin Ratio 0.7 (1.0-2.3); Alkaline Phosphatase 236 U/L (39-117); Bilirubin,Total 1.4 mg/dL (0.0-1.0); Blood Urea Nitrogen 24 mg/dl (6-20); Calcium 7.9 mg/dl (8.6-10.4); Carbon Dioxide 20 mmol/L (22-30); Chloride 102 mmol/L (96-108); Globulin 3.6 gm/dL (2.2-3.7); Glomerular Filtration Rate 93; Glucose 126 mg/dL (70-105)
--- NOTE | 2019-03-29 00:05 | Emergency Department Note ---
Altered Mental Status HPI - General Chief Complaint: Altered Mental Status Stated Complaint: confusion Time Seen by Provider: 03/28/19 21:58 Source: patient Mode of arrival: EMS Limitations: no limitations - History of Present Illness HPI Narrative: This 58-year-old comes emergency room brought by emergency medical services after [facility] has indicated that there is no way for them to deal with this patient's medical needs and concerns with delirious condition Which has progressed rapidly and just a few hours and marked abdominal d istention. Patient has a history of recurring ascites and anasarca. Patient's daughter is his power of district attorney and is here today, Jose santoyo. She has been out of town for a couple of weeks to [place]. Upon return she notices a market difference in her father. She reports that he [facility] until last evening when he checked himself out and insisted on leaving AGAINST MEDICAL ADVICE, had a friend take him home. He is unable to ambulate and was helped into his home. Cassie álvaro, a family friend that was helping take care of him while Jose was awake, brought him back to [facility] this morning. They arranged for him to go to [facility] this afternoon. [facility] called EMS because of his changes and inability to take care of him and sent him here. Jose indicates that he has been taking his medications that have been prescribed including the lactulose, etc. She reports that his talking a lot and about things of the past even remote is not normal for him. Jose also indicates that hospice or palliative care has not been discussed as a family or with her to any significant length and she is interested in this. Patient currently has full CODE STATUS but she understands and is wanting to move towards DNR. REVIEW OF SYSTEMS: Because of patient's mental status changes/delirium (almost assuredly from hepatic encephalopathy), the below answers were obtained from Jose. No fever, chills, sweats, chest pain, shortness of breath, nausea, vomiting, diarrhea, dysuria. Patient is incontinent of bowel and bladder which is also new. No back pain. Significant and major weakness such that he is unable to hold himself up on his legs whereas he was walking by himself even as recently as 9 or 10 days ago. - Related Data Home Medications Medication Instructions Recorded Confirmed diltiazem HCl 120 mg capsule,24 120 mg PO QDAY 01/09/18 03/28/19 hr,extended release gabapentin 300 mg capsule 300 mg PO TID 01/09/18 03/28/19 multivitamin 1 tab PO QDAY 01/09/18 03/28/19 thiamine HCl (vitamin B1) 100 mg 100 mg PO QDAY 01/09/18 03/28/19 tablet Mometasone/Formoterol [Dulera 100 2 puff IH BID PRN 01/19/18 03/28/19 Mcg/5 Mcg Inhaler] Lactulose [Cephulac] 20 gm PO BID 02/27/19 03/28/19 Rifaximin [Xifaxan] 550 mg PO BID 02/27/19 03/28/19 buPROPion [Wellbutrin] 75 mg PO BID 02/27/19 03/28/19 Albuterol Sulfate [Proair 90 mcg IH ONCE PRN 03/28/19 03/28/19 Respiclick] Omeprazole [PriLOSEC] 20 mg PO ONCE 03/28/19 03/28/19 Previous Rx's Medication Instructions Recorded Furosemide [Lasix] 40 mg PO DAILY #30 tab 03/01/19 Spironolactone [Aldactone] 100 mg PO DAILY #30 tab 03/01/19 Allergies Allergy/AdvReac Type Severity Reaction Status Date / Time No Known Drug Allergies Allergy Verified 02/27/19 12:18 Past Medical History - Past Medical History [facility] Narrative: Medical History (Last Updated 03/29/19 @ 00:18 by Jarett Hudson DO) residential (current) use of anticoagulants (Chronic) End stage liver disease (Chronic) Alcoholic cirrhosis (Chronic) Ascites due to alcoholic cirrhosis (Chronic) Atrial fibrillation with rapid ventricular response (Chronic) Psoriasis (Chronic) Edema of both lower extremities (Chronic) Chronic obstructive lung disease (Chronic) Abnormal LFTs (liver function tests) (Chronic) Morbid obesity (Chronic) Anasarca (Chronic) Lower extremity edema (Chronic) Chronic low back pain (Chronic) GERD (gastroesophageal reflux disease) (Chronic) Allergic rhinitis (Chronic) Hepatomegaly (Chronic) Gastritis due to alcohol without hemorrhage (Resolved) Hepatitis C (Chronic) Alcohol abuse (Chronic) Acute bronchitis (Resolved) Cellulitis (Resolved) Headache (Resolved) Neck pain (Resolved) Partial retinal tear without detachment (Resolved) After-cataract with vision obscured (Inactive) Bilateral presbyopia (Inactive) 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 Denies: DVT, myocardial infarction, pulmonary embolus Psychiatric history: Reports: anxiety, depression - Social History smoking status: Former smoker Alcohol use: Reports: None (Since early 2017. Previously was heavy.) Drug use: Reports: none, marijuana (Daily smoker) Physical Exam Limitations: no limitations General appearance: alert, in no apparent distress Head: atraumatic, normocephalic Eye: Present: EOMI ENT: Present: mucous membranes dry Neck: Present: trachea midline. Absent: lymphadenopathy, thyromegaly Chest: Present: symmetric chest wall rise Respiratory: Present: normal lung sounds bilaterally. Absent: respiratory distress, wheezes, stridor, accessory muscle use, prolonged expiratory phase Cardiovascular: Present: regular rate, normal rhythm. Absent: systolic murmur, diastolic murmur Abdominal: Present: soft, distention, rigidity, other (Lower abdominal wall is with piel d'orange pitting edema.). Absent: tenderness, guarding, rebound, normal bowel sounds Abdominal tenderness: Present: diffuse, mild Extremities: Present: pedal edema, pretibial edema (3/4), other ( trace pitting into the distal thighs left more than the right) Back: Absent: CVA tenderness (R), CVA tenderness (L) Neurological: Present: alert Patient oriented to: Present: person. Absent: place, time Speech: Present: fluid speech Cranial nerves: EOM function (II, III, IV, ): Normal Cerebellar function: other (2-week and unable) Motor strength - LUE: 3/5 Motor strength - RUE: 3/5 Motor strength - LLE: 3/5 Motor strength - RLE: 3/5 Coma Scale Eye Opening: Spontaneous Coma Scale Motor Response: Obeys Commands Coma Scale Verbal Response: Confused Coma Scale Total: 14 Psychiatric: Present: other (Rather talkative). Absent: depressed, agitated, anxious, tearful, poor eye contact Skin: Present: warm, dry Course Vital Signs Temperature 97.9 F 03/28/19 21:43 Pulse Rate 100 H 03/28/19 21:43 Respiratory Rate 18 03/28/19 21:43 Blood Pressure 112/72 03/28/19 21:43 Pulse Oximetry (%) 97 03/28/19 21:43 Temperature 97.9 F 03/28/19 21:43 Pulse Rate 99 H 03/28/19 23:51 Respiratory Rate 23 H 03/28/19 23:16 Blood Pressure 133/86 03/28/19 23:46 Pulse Oximetry (%) 95 03/28/19 23:51 Altered Mental Status - MDM Narrative Medical decision making narrative: Significant worsening and change in the past 2 weeks including mental status changes with delirium most likely due to hepatic encephalopathy from underlying liver failure/alcoholic cirrhosis. Limited abilities to care for himself or to be cared for short of a skilled facility due to his large size and difficulties with the mental status changes. We will do some additional labs. It is late enough that I am unable to obtain ultrasound-guided paracentesis but this has not urgent and can be done tomorrow. Labs came back fairly unremarkable with mild hyponatremia, elevated liver function tests and alkaline phosphatase. Creatinine is 0.9. We will proceed to give patient his medications and I discussed his circumstance with the hospitalist who agrees for him to be in charge of this patient as a patient here. mixing place supervisor agreeable and will pursue. - Lab Data Lab results reviewed: Yes I reviewed the patient's lab results. Result diagrams: 03/28/19 22:18 03/28/19 22:18 Lab Results 03/28/19 03/28/19 03/28/19 Range/Units 22:18 22:18 22:18 WBC 9.4 (4.5-11.0) K/mcL RBC 4.30 L (4.50-5.90) M/mcL Hgb 11.7 L (13.5-16.5) g/dL Hct 36.3 L (41.0-55.0) % MCV 84.4 (80.0-100.0) fL MCH 27.3 (26.0-34.0) pg MCHC 32.3 (31.0-36.0) g/dL RDW 17.9 H (11.5-14.5) % Plt Count 106 L (140-440) K/mcL MPV 8.4 (7.4-10.4) fL Gran % 74.5 (38.0-78.0) % Lymph % (Auto) 15.8 (15.5-49.0) % Rich % (Auto) 8.7 (1.0-12.0) % Eos % (Auto) 1.0 (0.0-7.0) % Baso % (Auto) 0 (0.0-2.0) % Gran # 7.0 (1.8-8.0) K/mcL Lymph # (Auto) 1.5 (1.5-4.8) K/mcL Rich # (Auto) 0.8 (0.1-0.9) K/mcL Eos # (Auto) 0.1 (0.0-0.7) K/mcL Baso # (Auto) 0 (0.0-0.3) K/mcL Sodium 132 L (133-145) mmol/L Potassium 4.4 (3.3-5.1) mmol/L Chloride 102 (96-108) mmol/L Carbon Dioxide 20 L (22-30) mmol/L Anion Gap 10.0 (8-16) BUN 24 H (6-20) mg/dl Creatinine 0.9 (0.7-1.2) mg/dl GFR Calculation 93 Glucose 126 H (70-105) mg/dL Calcium 7.9 L (8.6-10.4) mg/dl Total Bilirubin 1.4 H (0.0-1.0) mg/dL AST 65 H (0-37) U/l ALT 81 H (0-40) U/l Alkaline Phosphatase 236 H (39-117) U/L Ammonia 155 H (16-60) umol/L Total Protein 6.2 (5.9-8.4) gm/dL Albumin 2.6 L (3.2-5.2) gm/dL Globulin 3.6 (2.2-3.7) gm/dL Albumin/Globulin Ratio 0.7 L (1.0-2.3) Disposition Pt seen by [facility]/PA only: No Clinical Impression: Hepatic encephalopathy, Anasarca Altered mental status Qualifiers: Altered mental status type: delirium Qualified Code(s): R41.0 - Disorientation, unspecified Disposition: Xfer As Outpt/Obs ([facility]) Condition: Serious Referrals: Humberto Tripathi ARNP [Primary Care Provider] -
[2019-03-29] MEDS ORDERED: GABAPENTIN 300 MG CAPSULE PO ONE (00:13)
[2019-03-29] MEDS ORDERED: buPROPion 75 MG TABLET PO ONE (00:13)
[2019-03-29] MEDS ORDERED: LACTULOSE 20 GM/30 ML ORAL.SOL PO ONE (00:14)
[2019-03-29] MEDS ORDERED: ALBUTEROL SULFATE 1 PUFF INHALER INH PRN (08:29)
[2019-03-29] MEDS ORDERED: Mometasone/Formoterol [Dulera 100 Mcg/5 Mcg Inhaler] INH PRN (09:00)
[2019-03-29] MEDS ORDERED: FUROSEMIDE 20 MG TABLET PO SCH (09:00)
[2019-03-29] MEDS ORDERED: DILTIAZEM 120 MG CAP.XL.24H PO SCH (09:00)
[2019-03-29] MEDS ORDERED: GABAPENTIN 300 MG CAPSULE PO SCH (09:00)
[2019-03-29] MEDS: RIFAXIMIN 550 MG TABLET PO SCH ×2 (09:55→20:14)
[2019-03-29] MEDS: buPROPion 75 MG TABLET PO SCH ×2 (09:55→20:26)
[2019-03-29] MEDS: THIAMINE 100 MG TABLET PO SCH (09:55)
[2019-03-29] MEDS: MULTIVIT,THER IRON,CA,FA & MIN 1 TABLET PO SCH (09:55)
[2019-03-29] MEDS: OMEPRAZOLE 20 MG CAPSULE PO SCH (09:56)
[2019-03-29] MEDS: SPIRONOLACTONE 25 MG TABLET PO SCH (09:56)
[2019-03-29] MEDS ORDERED: LACTULOSE 20 GM/30 ML ORAL.SOL PR SCH (10:00)
--- NOTE | 2019-03-29 10:03 | Internal Med History&Physical ---
Medical - H&P: HPI Patient information: Note initiated : 03/29/19 at 9:59 am Service Date, if different from initiated Date: [] Patient: Dallas Darling 58 y/o M admitted on 03/29/19 for confusion. Chief Complaint: [] Chief complaint: Near unresponsive state History of present illness: Mr. Darling is a 58 year old M with a known history of alcoholic cirrhosis with end-stage liver disease with recurrent ascites requiring paracentesis and recent hospitalization at [facility] for SBP/hepatic encephalopathy who was discharged after 9-day hospitalization on 03/27 (apparently left AMA and had his friend take him home as he did not want to go to SNF.) He was subsequently brought in with increasing weakness confusion by his caregiver to [place] on 03/28 and was sent discharged to care facility. He presents with an a few hours of transfer to [facility] to [facility] ER with increasing lethargy altered mental status and inability to come to care facility take care of this very complex patient. Initial work-up in the ER was consistent with hepatic encephalopathy. Patient was extremely confused. Ammonia over 120, negative white count. CT scan reviewed from [place] March 19. He has generalized lymphedema/anasarca. In light of patient's clinical condition, advanced liver disease and recurrent hospitalization/paracentesis and extremely poor quality of life, ER physician Dr. Hudson discussed case with patient's daughter who is also the power of attorney recruiter Jose Darling. Daughter indicated that she has not had a discussion about hospice/palliative care and would want to pursue that route. Subsequently hospitalist service was consulted At the time of evaluation patient is barely responsive. Does not appear to be in distress. Nonlabored breathing with generalized lymphedema. Review of systems A 10 point review system was attempted but could not performed due to patient mental status Medical - H&P: H Medical history: Psoriasis (Chronic) Metacarpal bone fracture (Chronic 10/24/11) Finger dislocation (Chronic 10/05/09) History of hepatitis A (Chronic) Cellulitis (Chronic) Morbid obesity (Chronic) Bilateral presbyopia (Chronic) Regular astigmatism, bilateral (Chronic) Hypermetropia of both eyes (Chronic) Partial retinal tear without detachment (Chronic) After-cataract with vision obscured (Chronic) Headache (Chronic) End stage liver disease (Chronic) Broken skin (Chronic) Anasarca (Chronic) Atrial fibrillation with rapid ventricular response (Chronic) Acute bronchitis (Chronic) Edema (Chronic) Infestation by Sarcoptes scabiei td hominis (Chronic) Chronic obstructive lung disease (Chronic) longterm (current) use of anticoagulants (Chronic) Chronic low back pain (Chronic) Allergic rhinitis (Chronic) GERD (gastroesophageal reflux disease) (Chronic) Abnormal LFTs (liver function tests) (Chronic) Hepatomegaly (Chronic) 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) Hepatitis C (Chronic) Neck pain (Chronic) 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) Atrial fibrillation (Chronic) Alcoholic cirrhosis (Chronic) Nausea (Chronic) Phimosis (Chronic ~09/2017) Lower extremity edema (Acute) Alcohol abuse (Acute) Past Surgical History (Last Updated 07/03/18 @ 13:26 by Mary Church CMA) History of circumcision (Acute) H/O endoscopy (Chronic) History of cataract surgery (Chronic) Family History (Last Reviewed 07/03/18 @ 13:26 by Mary Church CMA) parents with DM's and father with cirrhosis Social History (Last Updated 07/03/18 @ 13:29 by Daniel Valdes MD) q tobacco 8yrs ago no etoh in 18mos uses walker uses [facility] - H&P: Meds Home Medications Medication Instructions Recorded Confirmed Type diltiazem HCl 120 mg capsule,24 120 mg PO QDAY 01/09/18 03/29/19 History hr,extended release gabapentin 300 mg capsule 300 mg PO TID 01/09/18 03/29/19 History multivitamin 1 tab PO QDAY 01/09/18 03/29/19 History thiamine HCl (vitamin B1) 100 mg 100 mg PO QDAY 01/09/18 03/29/19 History tablet Mometasone/Formoterol [Dulera 100 2 puff IH BID PRN 01/19/18 03/29/19 History Mcg/5 Mcg Inhaler] Lactulose [Cephulac] 20 gm PO BID 02/27/19 03/29/19 History Rifaximin [Xifaxan] 550 mg PO BID 02/27/19 03/29/19 History buPROPion [Wellbutrin] 75 mg PO BID 02/27/19 03/29/19 History Furosemide [Lasix] 40 mg PO DAILY #30 tab 03/01/19 03/29/19 Rx Spironolactone [Aldactone] 100 mg PO DAILY #30 tab 03/01/19 03/29/19 Rx Albuterol Sulfate [Proair 90 mcg IH ONCE PRN 03/28/19 03/29/19 History Respiclick] Omeprazole [PriLOSEC] 20 mg PO ONCE 03/28/19 03/29/19 History Allergies Allergy/AdvReac Type Severity Reaction Status Date / Time No Known Drug Allergies Allergy Verified 02/27/19 12:18 Medical - H&P: Exam - Constitutional Vitals: Temp Pulse Resp BP Pulse Ox 98.3 F 87 16 106/69 95 03/29/19 08:01 03/29/19 08:05 03/29/19 08:01 03/29/19 08:01 03/29/19 08:05 General appearance: morbidly obese Exam: Anasarca Nonlabored breathing head normocephalic Oral cavity dry No ear nose discharge Anisocoria Neck lymphadenopathy S1-S2 regular rhythm Diminished breath sounds bases Distended abdomen with fluid thrill/shifting dullness nontender Lower extremity 2+ lymphedema from ankle to the thighs Skin no suspicious lesion except for decubiti gluteal area/right lateral leg Skin no suspicious lesion Psych unresponsive Neuro could not be performed Medical - H&P: Reslt - Labs CBC & Chem 7: 03/28/19 22:18 03/28/19 22:18 Labs: Short CBC 03/28/19 Range/Units 22:18 WBC 9.4 (4.5-11.0) K/mcL Hgb 11.7 L (13.5-16.5) g/dL Hct 36.3 L (41.0-55.0) % Plt Count 106 L (140-440) K/mcL BMP 03/28/19 22:18 Sodium 132 L Potassium 4.4 Chloride 102 Carbon Dioxide 20 L BUN 24 H Creatinine 0.9 Glucose 126 H Calcium 7.9 L Liver Function 03/28/19 Range/Units 22:18 Total Bilirubin 1.4 H (0.0-1.0) mg/dL AST 65 H (0-37) U/l ALT 81 H (0-40) U/l Alkaline Phosphatase 236 H (39-117) U/L Albumin 2.6 L (3.2-5.2) gm/dL Medical - H&P: A/P (1) Hepatic encephalopathy Current visit: Yes Status: Acute * Hepatic encephalopathy-start lactulose retention enema/once patient is lucid initiate rifaximin/oral lactulose, no clear precipitant. Check paracentesis to rule out SBP. No evidence of GI bleed. Ammonia over 120. * End-stage liver disease-care conference for goals of care/hospice * Anasarca with ascites -paracentesis/rule out SBP with a sciatic fluid studies. Continue Lasix/Aldactone * Anxiety disorder-hold home dose bupropion * GERD continue PPI * Atrial relation continue diltiazem * COPD continue albuterol/Dulera * DNR * Prophylaxis SCDs Plan * Inpatient admission * Lactulose retention enema * Paracentesis * Acetic fluid studies * Lasix spironolactone * SBP prophylaxis * Care conference for goals of care Medical - H&P: Qual - VTE Deep Vein Thrombosis/Pulmonary Embolism Present on Admission: No
[2019-03-29] MEDS: cefTRIAXone 2 GM in DEXTROSE 5% IN WATER 50 ML IV SCH (12:27)
--- NOTE | 2019-03-29 12:32 | Ultrasound Report ---
Ultrasound-guided paracentesis Technique: The procedure and risks including possibility of bleeding, infection, bowel and parenchymal organ perforation were explained the patient. He understood and wished to proceed. General Intern scanning demonstrated Ascites in the right lower quadrant which was free of bowel. The skin was marked, prepped and locally anesthetized 1% lidocaine to the level of the parietal peritoneum using a 25-gauge needle. A 14-gauge multi-sidehole Angiocath was then placed under sonographic guidance into the ascites and 6.5 L of simple appearing ascites was aspirated and sent for requested studies. The needle was removed. Postprocedure scanning shows minimal residual ascites. No apparent complication - patient tolerated procedure well. IV albumin was administered - please see medication sheet IMPRESSION: Successful ultrasound-guided paracentesis yielding 6.5 L of simple appearing transudative ascites.Postprocedure scanning shows only minimal residual fluid. Patient tolerated procedure well without apparent complication Interpreted and Authenticated by: Armando Mera 03/29/19
[2019-03-29] MEDS ORDERED: ALBUMIN HUMAN 25 GM/100 ML BAG IV STA (12:42)
[2019-03-29] MEDS ORDERED: ALBUMIN HUMAN 25 GM/100 ML BAG IV ONE (12:46)
[2019-03-29] MEDS ORDERED: FUROSEMIDE 40 MG/4 ML VIAL IV SCH ×2 (13:00→14:00)
[2019-03-29 13:49] LABS: LDH,Peritoneal Fluid 28 U/L
[2019-03-29 13:50] LABS: Macrophages,Peritoneal Fluid 31 %; Mesothelial,Peritoneal Fluid 3 %; Neutrophils,Peritoneal Fluid 50 %
[2019-03-29 13:51] LABS: Nucleated Cel,Peritoneal Fluid 157 /cumm; RBC,Peritoneal Fluid < 50000 /cumm
[2019-03-29 13:53] LABS: INR 1.5 (0.9-1.1); Prothrombin Time 17.9 sec (11.9-14.5)
[2019-03-29 14:14] LABS: ALT/SGPT 73 U/l (0-40); AST/SGOT 59 U/l (0-37); Albumin 2.4 gm/dL (3.2-5.2); Albumin/Globulin Ratio 0.6 (1.0-2.3); Alkaline Phosphatase 226 U/L (39-117); Bilirubin,Direct 0.7 mg/dL (0.0-0.3); Bilirubin,Total 1.9 mg/dL (0.0-1.0); Blood Urea Nitrogen 24 mg/dl (6-20); Calcium 8.1 mg/dl (8.6-10.4); Carbon Dioxide 21 mmol/L (22-30); Chloride 102 mmol/L (96-108); Globulin 3.7 gm/dL (2.2-3.7); Glomerular Filtration Rate 103; Glucose 87 mg/dL (70-105); Lactate Dehydrogenase 323 U/L (94-250); Phosphorous 3.1 mg/dL (2.7-4.5); Triglycerides 76 mg/dl (<150); Uric Acid 4.4 mg/dL (2.5-8.0)
[2019-03-29] MEDS: LACTULOSE 20 GM/30 ML ORAL.SOL PO SCH ×2 (14:25→20:15)
[2019-03-29] MEDS ORDERED: ONDANSETRON 4 MG/2 ML VIAL ONE (19:59)
[2019-03-29] MEDS: ONDANSETRON 4 MG/2 ML VIAL IV PRN (20:01)
[2019-03-29] MEDS: FUROSEMIDE 40 MG/4 ML VIAL IV SCH (20:15)
[2019-03-30 05:06] LABS: Hematocrit 32.6 % (41.0-55.0); Hemoglobin 10.7 g/dL (13.5-16.5); Mean Corpuscular HGB Conc 32.8 g/dL (31.0-36.0); Platelet Count 93 K/mcL (140-440); RBC 3.79 M/mcL (4.50-5.90); Red Cell Distribution Width 18.5 % (11.5-14.5); WBC 8.2 K/mcL (4.5-11.0)
[2019-03-30 05:36] LABS: ALT/SGPT 60 U/l (0-40); AST/SGOT 52 U/l (0-37); Albumin 2.7 gm/dL (3.2-5.2); Albumin/Globulin Ratio 0.8 (1.0-2.3); Alkaline Phosphatase 202 U/L (39-117); Bilirubin,Direct 0.6 mg/dL (0.0-0.3); Bilirubin,Total 1.4 mg/dL (0.0-1.0); Blood Urea Nitrogen 21 mg/dl (6-20); Calcium 8.1 mg/dl (8.6-10.4); Carbon Dioxide 23 mmol/L (22-30); Chloride 100 mmol/L (96-108); Globulin 3.2 gm/dL (2.2-3.7); Glomerular Filtration Rate 109; Glucose 102 mg/dL (70-105); Lactate Dehydrogenase 263 U/L (94-250); Phosphorous 3.1 mg/dL (2.7-4.5); Triglycerides 70 mg/dl (<150); Uric Acid 4.7 mg/dL (2.5-8.0)
[2019-03-30 06:13] LABS: Anisocytosis 1+ (NONE SEEN); Eosinophils % (Manual) 1 % (0-7); Lymphocytes % 8 % (15-49); Monocytes % (Manual) 10 % (1-12); Platelet Estimate DECREASED (NORMAL); RBC Morphology ABNORMAL (NORMAL); Segmented Neutrophils % 81 % (38-78)
[2019-03-30] MEDS: OMEPRAZOLE 20 MG CAPSULE PO SCH (07:30)
[2019-03-30] MEDS: RIFAXIMIN 550 MG TABLET PO SCH ×2 (09:57→21:43)
[2019-03-30] MEDS: SPIRONOLACTONE 25 MG TABLET PO SCH (09:58)
[2019-03-30] MEDS: THIAMINE 100 MG TABLET PO SCH (09:58)
[2019-03-30] MEDS: LACTULOSE 20 GM/30 ML ORAL.SOL PO SCH ×3 (09:58→21:32)
[2019-03-30] MEDS: FUROSEMIDE 40 MG/4 ML VIAL IV SCH ×2 (09:58→21:36)
[2019-03-30] MEDS: MULTIVIT,THER IRON,CA,FA & MIN 1 TABLET PO SCH (09:58)
[2019-03-30] MEDS: buPROPion 75 MG TABLET PO SCH ×2 (10:02→21:31)
[2019-03-30] MEDS: NADOLOL 20 MG TABLET PO SCH (10:02)
[2019-03-30] MEDS: cefTRIAXone 2 GM in DEXTROSE 5% IN WATER 50 ML IV SCH (10:03)
--- NOTE | 2019-03-30 10:05 | Internal Med Progress Note ---
Medical - PN: Subj Patient information: Note initiated : 03/30/19 at 10:03 am Service Date, if different from initiated Date: [] Patient: Dallas Darling a 58 y/o M admitted on 03/29/19 for confusion. Chief Complaint: [] Interval history: Mr. Darling is a 58 year old M with a known history of alcoholic cirrhosis with end-stage liver disease with recurrent ascites requiring paracentesis and recent hospitalization at [facility] for SBP/hepatic encephalopathy who was discharged after 9-day hospitalization on 03/27 (apparently left AMA and had his friend take him home as he did not want to go to SNF.) He was subsequently brought in with increasing weakness confusion by his caregiver to [facility] on 03/28 and was sent discharged to care facility. He presents with an a few hours of transfer to [facility] to [facility] ER with increasing lethargy altered mental status and inability to come to care facility take care of this very complex patient. Initial work-up in the ER was consistent with hepatic encephalopathy. Patient was extremely confused. Ammonia over 120, negative white count. CT scan reviewed from [place] March 19. He has generalized lymphedema/anasarca. In light of patient's clinical condition, advanced liver disease and recurrent hospitalization/paracentesis and extremely poor quality of life, ER physician Dr. Hudson discussed case with patient's daughter who is also the power of deputy county attorney Jose Darling. Daughter indicated that she has not had a discussion about hospice/palliative care and would want to pursue that route. Subsequently hospitalist service was consulted At the time of evaluation patient is barely responsive. Does not appear to be in distress. Nonlabored breathing with generalized lymphedema. 03/30-patient doing better. Able to open eyes however and not following commands. Incomprehensible speech. Status post 2 doses of retention enema fo llowed by oral rifaximin/lactulose. Started on nadolol. Status post paracentesis with 6000 cc fluid removal. Cell count 150 with 50% neutrophils. DC antibiotic coverage. Continue diuresis. Discussed patient's clinical status with family including sister and daughter. Family of the opinion that patient would benefit from end-of-life palliation due to his continued deterioration and multiple hospitalization with extremely poor quality of life. Family conference on Monday for initiation of hospice. Case management to coordinate. - Constitutional Vitals: Vital Signs Temp Pulse Resp BP Pulse Ox 98.8 F 91 H 16 119/76 98 03/30/19 07:54 03/29/19 20:01 03/30/19 07:54 03/30/19 08:01 03/30/19 09:13 Period Temp Pulse Resp BP Sys/Estrella Pulse Ox Last 24 Hr 97.3 F-99.3 F 55-104 16-20 97-137/65-101 73-99 Intake and Output 03/29/19 03/30/19 03/30/19 21:59 05:59 13:59 Intake Total 1040 240 Output Total 1725 450 Balance -685 -210 Weight 240 lb 11.2 oz Intake & Output: Intake & Output 03/29/19 03/30/19 03/30/19 21:59 05:59 13:59 Intake Total 1040 240 Output Total 1725 450 Balance -685 -210 Weight 240 lb 11.2 oz Intake: IV 200 Oral 840 240 Output: Void Amount 1400 450 # of times incontinent of urine 0 Urine/Stool Mix 325 Other: Meal Dinner Percent of Meal Consumed 25% Urine Appearance Clear Clear Urine Color Straw Bright Yellow Urine Odor Normal Stool Size Small Stool Color Yellow Yellow Stool Consistency Loose # Voids 0 # Unmeasured Emesis 1 # of times incontinent of 1 Bowels # Emeses 0 General appearance: no acute distress Exam: Alert but disoriented Nonlabored breathing Tachycardia on telemetry Distended abdomen with fluid Lymphedema improving Medical - PN: Obj Da - Labs CBC & Chem 7: 03/30/19 03:46 03/30/19 03:46 Labs: Abnormal Lab Results 03/30/19 03/30/19 03/29/19 03:46 03:46 13:00 RBC 3.79 L Hgb 10.7 L Hct 32.6 L RDW 18.5 H Plt Count 93 L Seg Neutrophils % 81 H Lymphocytes % 8 L Platelet Estimate Decreased A Anisocytosis 1+ A PT 17.9 H INR 1.5 H Sodium Carbon Dioxide BUN 21 H Creatinine 0.6 L Glucose Calcium 8.1 L Total Bilirubin 1.4 H Direct Bilirubin 0.6 H GGT 164 H AST 52 H ALT 60 H Alkaline Phosphatase 202 H Ammonia Lactate Dehydrogenase 263 H Albumin 2.7 L Albumin/Globulin Ratio 0.8 L 03/29/19 03/28/1919 13:00 22:18 22:18 RBC Hgb Hct RDW Plt Count Seg Neutrophils % Lymphocytes % Platelet Estimate Anisocytosis PT INR Sodium 132 L 132 L Carbon Dioxide 21 L 20 L BUN 24 H 24 H Creatinine Glucose 126 H Calcium 8.1 L 7.9 L Total Bilirubin 1.9 H 1.4 H Direct Bilirubin 0.7 H GGT 184 H AST 59 H 65 H ALT 73 H 81 H Alkaline Phosphatase 226 H 236 H Ammonia 155 H Lactate Dehydrogenase 323 H Albumin 2.4 L 2.6 L Albumin/Globulin Ratio 0.6 L 0.7 L 03/28/19 22:18 RBC 4.30 L Hgb 11.7 L Hct 36.3 L RDW 17.9 H Plt Count 106 L Seg Neutrophils % Lymphocytes % Platelet Estimate Anisocytosis PT INR Sodium Carbon Dioxide BUN Creatinine Glucose Calcium Total Bilirubin Direct Bilirubin GGT AST ALT Alkaline Phosphatase Ammonia Lactate Dehydrogenase Albumin Albumin/Globulin Ratio Meds: Medications Albuterol Sulfate (Ventolin) 1 puff INH DAILYP PRN PRN Reason: Shortness Of Breath Bupropion HCl (Wellbutrin) 75 mg PO BID [facility] Last Admin: 03/29/19 20:26 Dose: Not Given Documented by: Furosemide (Lasix) 40 mg IV Q12 [facility] Last Admin: 03/29/19 20:15 Dose: 40 mg Documented by: Iron Carb/Multivit/[place]/Folic Acid (Multivitamin W/Minerals) 1 tab PO DAILY [facility] Last Admin: 03/29/19 09:55 Dose: Not Given Documented by: Lactulose (Cephulac) 30 gm PO TID [facility] Last Admin: 03/29/19 20:15 Dose: 30 gm Documented by: Nadolol (Corgard) 20 mg PO DAILY [facility] Omeprazole (Prilosec) 20 mg PO ACB [facility] Last Admin: 03/30/19 07:30 Dose: 20 mg Documented by: Ondansetron HCl (Zofran) 4 mg IV Q4-6HP PRN PRN Reason: Nausea And Vomiting Last Admin: 03/29/19 20:01 Dose: 4 mg Documented by: Mometasone/Formoterol [Dulera 100 Mcg/5 Mcg Inhaler] 1 dose INH BIDP PRN PRN Reason: SHORTNESS OF BREATH Spironolactone (Aldactone) 100 mg PO DAILY [facility] Last Admin: 03/29/19 09:56 Dose: Not Given Documented by: Thiamine HCl (Vitamin B1) 100 mg PO DAILY [facility] Last Admin: 03/29/19 09:55 Dose: Not Given Documented by: Medical - PN: A/P - Time Spent With Patient Total time spent is greater than 50% in coordination of care (as documented) at patient's floor/unit and/or counseling patient: 25 - 35 minutes (1) Hepatic encephalopathy Status: Acute Assessment and plan: * Hepatic encephalopathy-clinical improvement noted on lactulose/rifaximin. * Ascites status post paracentesis. Total cell 150 with 50% neutrophils without bacteria on Gram stain. No indication of SBP * Portal hypertension/esophageal varices start nadolol * End-stage liver disease-care conference for goals of care/hospice * Anasarca secondary to end-stage liver disease-Continue Lasix/Aldactone * Anxiety disorder-restart home dose bupropion * GERD continue PPI * Atrial fibrillation with intermittent RVR continue diltiazem. * COPD continue albuterol/Dulera * DNR * Prophylaxis SCDs Plan * Continue telemetry monitoring * Lactulose/rifaximin * Lasix spironolactone * Care conference for goals of care on Monday. Case management to coordinate Current Visit: Yes Medical - PN: Qual - VTE Deep Vein Thrombosis/Pulmonary Embolism Present on Admission: No
--- NOTE | 2019-03-30 12:42 | Internal Med Progress Note ---
Medical - PN: Subj Patient information: Note initiated : 03/30/19 at 12:36 pm Service Date, if different from initiated Date: [] Patient: Dallas Darling a 58 y/o M admitted on 03/29/19 for confusion. Chief Complaint: [] Interval history: Mr. Darling is a 58 year old M with a known history of alcoholic cirrhosis with end-stage liver disease with recurrent ascites requiring paracentesis and recent hospitalization at [facility] for SBP/hepatic encephalopathy who was discharged after 9-day hospitalization on 03/27 (apparently left AMA and had his friend take him home as he did not want to go to SNF.) He was subsequently brought in with increasing weakness confusion by his caregiver to [facility] on 03/28 and was sent discharged to care facility. He presents with an a few hours of transfer to [facility] to [facility] ER with increasing lethargy altered mental status and inability to come to care facility take care of this very complex patient. Initial work-up in the ER was consistent with hepatic encephalopathy. Patient was extremely confused. Ammonia over 120, negative white count. CT scan reviewed from [place] March 19. He has generalized lymphedema/anasarca. In light of patient's clinical condition, advanced liver disease and recurrent hospitalization/paracentesis and extremely poor quality of life, ER physician Dr. Hudson discussed case with patient's daughter who is also the power of nursing home assistant Jose Darling. Daughter indicated that she has not had a discussion about hospice/palliative care and would want to pursue that route. Subsequently hospitalist service was consulted At the time of evaluation patient is barely responsive. Does not appear to be in distress. Nonlabored breathing with generalized lymphedema. 03/30-patient doing better. Able to open eyes however and not following commands. Incomprehensible speech. Status post 2 doses of retention enema fo llowed by oral rifaximin/lactulose. Started on nadolol. Status post paracentesis with 6000 cc fluid removal. Cell count 150 with 50% neutrophils. DC antibiotic coverage. Continue diuresis. Discussed patient's clinical status with family including sister and daughter. Family of the opinion that patient would benefit from end-of-life palliation due to his continued deterioration and multiple hospitalization with extremely poor quality of life. Family conference on Monday for initiation of hospice. Case management to coordinate. - Constitutional Vitals: Vital Signs Temp Pulse Resp BP Pulse Ox 99.0 F 91 H 16 101/71 99 03/30/19 11:48 03/29/19 20:01 03/30/19 11:48 03/30/19 11:48 03/30/19 11:48 Period Temp Pulse Resp BP Sys/Estrella Pulse Ox Last 24 Hr 97.3 F-99.3 F 55-104 16-20 97-137/65-101 73-99 Intake and Output 03/29/19 03/30/19 03/30/19 21:59 05:59 13:59 Intake Total 1040 240 530 Output Total 1725 450 Balance -685 -210 530 Weight 109.18 kg 109.18 kg Patient Weight 03/31/19 05:59 Weight 109.18 kg Intake & Output: Intake & Output 03/29/19 03/30/19 03/30/19 21:59 05:59 13:59 Intake Total 1040 240 530 Output Total 1725 450 Balance -685 -210 530 Weight 109.18 kg 109.18 kg Intake: IV 200 50 Rocephin 2 gm In Dextrose 5% in 50 Water 50 ml @ 100 mls/hr IV DAILY [facility] Rx#:[id number] Oral 840 240 480 Output: Void Amount 1400 450 # of times incontinent of urine 0 Urine/Stool Mix 325 Other: Meal Dinner Breakfast Percent of Meal Consumed 25% 25% Feeding Ability Total Assistance Urine Appearance Clear Clear Urine Color Straw Bright Yellow Urine Odor Normal Strong Stool Size Small Smear Stool Color Yellow Yellow Stool Consistency Loose # Voids 0 1 # Unmeasured Emesis 1 # of times incontinent of 1 Bowels # Emeses 0 Exam: General: Alert, Awake, No acute Distress Eyes/N/T: EOMI, Head/Neck: neck supple, CV: RRR, No murmurs, Pulm: Clear b/l, no wheezing/rhonchi/rales Abd: soft, nontender, distended, +BS x4 Ext: no clubbing/cyanosis, 1-2+ RLE, 2-3+ LLE Neuro: Alert, no focal deficits, moves all extremities, Skin: warm/dry Medical - PN: Obj Da - Labs CBC & Chem 7: 03/30/19 03:46 03/30/19 03:46 Labs: Abnormal Lab Results 03/30/19 03/30/19 03/29/19 03:46 03:46 13:00 RBC 3.79 L Hgb 10.7 L Hct 32.6 L RDW 18.5 H Plt Count 93 L Seg Neutrophils % 81 H Lymphocytes % 8 L Platelet Estimate Decreased A Anisocytosis 1+ A PT 17.9 H INR 1.5 H Sodium Carbon Dioxide BUN 21 H Creatinine 0.6 L Glucose Calcium 8.1 L Total Bilirubin 1.4 H Direct Bilirubin 0.6 H GGT 164 H AST 52 H ALT 60 H Alkaline Phosphatase 202 H Ammonia Lactate Dehydrogenase 263 H Albumin 2.7 L Albumin/Globulin Ratio 0.8 L 03/29/19 03/28/19 03/28/19 13:00 22:18 22:18 RBC Hgb Hct RDW Plt Count Seg Neutrophils % Lymphocytes % Platelet Estimate Anisocytosis PT INR Sodium 132 L 132 L Carbon Dioxide 21 L 20 L BUN 24 H 24 H Creatinine Glucose 126 H Calcium 8.1 L 7.9 L Total Bilirubin 1.9 H 1.4 H Direct Bilirubin 0.7 H GGT 184 H AST 59 H 65 H ALT 73 H 81 H Alkaline Phosphatase 226 H 236 H Ammonia 155 H Lactate Dehydrogenase 323 H Albumin 2.4 L 2.6 L Albumin/Globulin Ratio 0.6 L 0.7 L 03/28/19 22:18 RBC 4.30 L Hgb 11.7 L Hct 36.3 L RDW 17.9 H Plt Count 106 L Seg Neutrophils % Lymphocytes % Platelet Estimate Anisocytosis PT INR Sodium Carbon Dioxide BUN Creatinine Glucose Calcium Total Bilirubin Direct Bilirubin GGT AST ALT Alkaline Phosphatase Ammonia Lactate Dehydrogenase Albumin Albumin/Globulin Ratio Meds: Medications Albuterol Sulfate (Ventolin) 1 puff INH DAILYP PRN PRN Reason: Shortness Of Breath Bupropion HCl (Wellbutrin) 75 mg PO BID [facility] Last Admin: 03/30/19 10:02 Dose: 75 mg Documented by: Furosemide (Lasix) 40 mg IV Q12 [facility] Last Admin: 03/30/19 09:58 Dose: 40 mg Documented by: Iron Carb/Multivit/[employer]/Folic Acid (Multivitamin W/Minerals) 1 tab PO DAILY [facility] Last Admin: 03/30/19 09:58 Dose: 1 tab Documented by: Lactulose (Cephulac) 30 gm PO TID [facility] Last Admin: 03/30/19 09:58 Dose: 30 gm Documented by: Nadolol (Corgard) 20 mg PO DAILY [facility] Last Admin: 03/30/19 10:02 Dose: 20 mg Documented by: Omeprazole (Prilosec) 20 mg PO ACB [facility] Last Admin: 03/30/19 07:30 Dose: 20 mg Documented by: Ondansetron HCl (Zofran) 4 mg IV Q4-6HP PRN PRN Reason: Nausea And Vomiting Last Admin: 03/29/19 20:01 Dose: 4 mg Documented by: Mometasone/Formoterol [Dulera 100 Mcg/5 Mcg Inhaler] 1 dose INH BIDP PRN PRN Reason: SHORTNESS OF BREATH Spironolactone (Aldactone) 100 mg PO DAILY [facility] Last Admin: 03/30/19 09:58 Dose: 100 mg Documented by: Thiamine HCl (Vitamin B1) 100 mg PO DAILY [facility] Last Admin: 03/30/19 09:58 Dose: 100 mg Documented by: Medical - PN: A/P - Time Spent With Patient Total time spent is greater than 50% in coordination of care (as documented) at patient's floor/unit and/or counseling patient: - Narrative A/P Narrative: Assessment: *Hepatic encephalopathy: Improving *Ascites/Peripheral edema: 2/2 above with underlying etoh cirrosis -s/p paracentesis (03/29) 6.5L, no SBP *Etoh cirrhosis w/portal HTN/Ascites/Anasarca/Eso varices: does not drink etoh anymore -follows with dr. Napoles -MELD=18(6%) *AFib w/intermittent RVR *COPD (2L prn daytime) *KARLENE on CPAP: *Chr LBP: *GERD: *Anxiety Plan: -Continue lactulose/rifaximin -cont lasix/aldactone -on nadolol -home CPAP -switch PPI to H2-andres -TEDs/elevate legs while in bed -pt/ot -Hospice eval -ppx: [facility]enox/home H2 DNR Medical - PN: Qual - VTE Deep Vein Thrombosis/Pulmonary Embolism Present on Admission: No
[2019-03-30] MEDS: LACTULOSE 20 GM/30 ML ORAL.SOL PR SCH (20:11)
[2019-03-30] MEDS ORDERED: LACTULOSE 20 GM/30 ML ORAL.SOL ONE ×2 (21:03→23:23)
[2019-03-30] MEDS: FAMOTIDINE 20 MG TABLET PO SCH (21:31)
[2019-03-31] MEDS: LACTULOSE 20 GM/30 ML ORAL.SOL PR SCH ×5 (00:25→20:03)
[2019-03-31] MEDS ORDERED: LACTULOSE 20 GM/30 ML ORAL.SOL ONE (04:11)
[2019-03-31 05:18] LABS: Hematocrit 34.2 % (41.0-55.0); Hemoglobin 11.1 g/dL (13.5-16.5); Mean Cell Volume 85.4 fL (80.0-100.0); Mean Corpuscular HGB Conc 32.5 g/dL (31.0-36.0); Mean Platelet Volume 7.7 fL (7.4-10.4); Platelet Count 102 K/mcL (140-440); Red Cell Distribution Width 18.8 % (11.5-14.5)
[2019-03-31 05:23] LABS: INR 1.5 (0.9-1.1)
[2019-03-31 05:35] LABS: ALT/SGPT 50 U/l (0-40); AST/SGOT 44 U/l (0-37); Albumin 2.5 gm/dL (3.2-5.2); Albumin/Globulin Ratio 0.8 (1.0-2.3); Alkaline Phosphatase 184 U/L (39-117); Bilirubin,Direct 0.5 mg/dL (0.0-0.3); Bilirubin,Total 1.5 mg/dL (0.0-1.0); Blood Urea Nitrogen 19 mg/dl (6-20); Carbon Dioxide 24 mmol/L (22-30); Chloride 101 mmol/L (96-108); Glomerular Filtration Rate 109; Glucose 79 mg/dL (70-105); Lactate Dehydrogenase 244 U/L (94-250); Phosphorous 2.9 mg/dL (2.7-4.5); Triglycerides 62 mg/dl (<150); Uric Acid 4.8 mg/dL (2.5-8.0)
[2019-03-31 06:25] LABS: Anisocytosis 1+ (NONE SEEN); Band Neutrophils % 1 % (0-10); Hypochromasia 1+ (NONE SEEN); Lymphocytes % 14 % (15-49); Monocytes % (Manual) 7 % (1-12); Platelet Estimate DECREASED (NORMAL); Polychromasia 1+ (NONE SEEN); RBC Morphology ABNORM (NORMAL); Segmented Neutrophils % 78 % (38-78)
[2019-03-31] MEDS: ONDANSETRON 4 MG/2 ML VIAL IV PRN ×3 (06:47→22:32)
--- NOTE | 2019-03-31 08:27 | Internal Med Progress Note ---
Medical - PN: Subj Patient information: Note initiated : 03/31/19 at 8:24 am Service Date, if different from initiated Date: [] Patient: Dallas Darling a 58 y/o M admitted on 03/29/19 for confusion. Chief Complaint: [] Interval history: Mr. Darling is a 58 year old M with a known history of alcoholic cirrhosis with e nd-stage liver disease with recurrent ascites requiring paracentesis and recent hospitalization at [facility] for SBP/hepatic encephalopathy who was discharged after 9-day hospitalization on 03/27 (apparently left AMA and had his friend take him home as he did not want to go to SNF.) He was subsequently brought in with increasing weakness confusion by his caregiver to [facility] on 03/28 and was sent discharged to care facility. He presents with an a few hours of transfer to [facility] to [facility] ER with increasing lethargy altered mental status and inability to come to care facility take care of this very complex patient. Initial work-up in the ER was consistent with hepatic encephalopathy. Patient was extremely confused. Ammonia over 120, negative white count. CT scan reviewed from [place] March 19. He has generalized lymphedema/anasarca. In light of patient's clinical condition, advanced liver disease and recurrent hospitalization/paracentesis and extremely poor quality of life, ER physician Dr. Hudson discussed case with patient's daughter who is also the power of hydraulic jack mechanic Jose Darling. Daughter indicated that she has not had a discussion about hospice/palliative care and would want to pursue that route. Subsequently hospitalist service was consulted At the time of evaluation patient is barely responsive. Does not appear to be in distress. Nonlabored breathing with generalized lymphedema. 03/30-patient doing better. Able to open eyes however and not following commands. Incomprehensible speech. Status post 2 doses of retention enema fol lowed by oral rifaximin/lactulose. Started on nadolol. Status post paracentesis with 6000 cc fluid removal. Cell count 150 with 50% neutrophils. DC antibiotic coverage. Continue diuresis. Discussed patient's clinical status with family including sister and daughter. Family of the opinion that patient would benefit from end-of-life palliation due to his continued deterioration and multiple hospitalization with extremely poor quality of life. Family conference on Monday for initiation of hospice. Case management to coordinate. 03/31 Patient was on oral lactulose 3 times daily yesterday with no bowel movements decreased mentation was started on lactulose enemas last night with good r esponse. Likely transition back to oral but with increased frequency to obtain stools 2 to 3/day. Patient has some nausea but chills little bit of pain over the paracentesis site but otherwise no new complaints. Family was in last night to see him. Review of Systems: denies headache/fever/vomiting/chest or abdominal pain/cough/dyspnea/diarrhea. Otherwise see above. - Constitutional Vitals: Vital Signs Temp Pulse Resp BP Pulse Ox 98.3 F 91 H 20 106/76 95 03/31/19 08:01 03/29/19 20:01 03/31/19 04:01 03/31/19 08:01 03/31/19 08:04 Period Temp Pulse Resp BP Sys/Estrella Pulse Ox Last 24 Hr 98.3 F-99.8 F 16-20 101-113/65-81 90-99 Intake and Output 03/30/19 03/31/19 03/31/19 21:59 05:59 13:59 Output Total 1 2 Balance -1 -2 Weight 109.089 kg Intake & Output: Intake & Output 03/30/19 03/31/19 03/31/19 21:59 05:59 13:59 Output Total 1 2 Balance -1 -2 Weight 109.089 kg Output: # of times incontinent of urine 1 2 Other: Meal Dinner Percent of Meal Consumed 0% Stool Size Large Moderate Small Stool Color Yellow Yellow Yellow Stool Consistency Soft Soft Watery Formed Watery # Bowel Movements 1 # of times incontinent of 1 Bowels Exam: General: Alert, Awake, No acute Distress Eyes/N/T: EOMI, Head/Neck: neck supple, CV: RRR, No murmurs, Pulm: Clear b/l, no wheezing/rhonchi/rales Abd: soft, distended, +BS x4 Ext: no clubbing/cyanosis, 1+ b/l LE edema Neuro: Alert, no focal deficits, moves all extremities, Skin: warm/dry Medical - PN: Obj Da - Labs CBC & Chem 7: 03/31/19 04:30 03/31/19 04:30 Labs: Abnormal Lab Results 10/03/31/19 03/31/19 04:30 04:30 04:30 RBC Hgb Hct RDW Plt Count Seg Neutrophils % Lymphocytes % Platelet Estimate RBC Morphology Polychromasia Hypochromasia Anisocytosis PT 18.0 H INR 1.5 H Sodium Carbon Dioxide BUN Creatinine 0.6 L Glucose Calcium 8.0 L Total Bilirubin 1.5 H Direct Bilirubin 0.5 H GGT 147 H AST 44 H ALT 50 H Alkaline Phosphatase 184 H Ammonia 93 H Lactate Dehydrogenase Total Protein 5.5 L Albumin 2.5 L Albumin/Globulin Ratio 0.8 L 03/31/19 03/30/19 03/30/19 04:30 16:46 03:46 RBC 4.00 L Hgb 11.1 L Hct 34.2 L RDW 18.8 H Plt Count 102 L Seg Neutrophils % Lymphocytes % 14 L Platelet Estimate Decreased A RBC Morphology Abnorm A Polychromasia 1+ A Hypochromasia 1+ A Anisocytosis 1+ A PT INR Sodium Carbon Dioxide BUN 21 H Creatinine 0.6 L Glucose Calcium 8.1 L Total Bilirubin 1.4 H Direct Bilirubin 0.6 H GGT 164 H AST 52 H ALT 60 H Alkaline Phosphatase 202 H Ammonia 174 H Lactate Dehydrogenase 263 H Total Protein Albumin 2.7 L Albumin/Globulin Ratio 0.8 L 03/30/19 03/29/19 03/29/19 03:46 13:00 13:00 RBC 3.79 L Hgb 10.7 L Hct 32.6 L RDW 18.5 H Plt Count 93 L Seg Neutrophils % 81 H Lymphocytes % 8 L Platelet Estimate Decreased A RBC Morphology Polychromasia Hypochromasia Anisocytosis 1+ A PT 17.9 H INR 1.5 H Sodium 132 L Carbon Dioxide 21 L BUN 24 H Creatinine Glucose Calcium 8.1 L Total Bilirubin 1.9 H Direct Bilirubin 0.7 H GGT 184 H AST 59 H ALT 73 H Alkaline Phosphatase 226 H Ammonia Lactate Dehydrogenase 323 H Total Protein Albumin 2.4 L Albumin/Globulin Ratio 0.6 L 03/28/19 03/28/19 03/28/19 22:18 22:18 22:18 RBC 4.30 L Hgb 11.7 L Hct 36.3 L RDW 17.9 H Plt Count 106 L Seg Neutrophils % Lymphocytes % Platelet Estimate RBC Morphology Polychromasia Hypochromasia Anisocytosis PT INR Sodium 132 L Carbon Dioxide 20 L BUN 24 H Creatinine Glucose 126 H Calcium 7.9 L Total Bilirubin 1.4 H Direct Bilirubin GGT AST 65 H ALT 81 H Alkaline Phosphatase 236 H Ammonia 155 H Lactate Dehydrogenase Total Protein Albumin 2.6 L Albumin/Globulin Ratio 0.7 L Meds: Medications Albuterol Sulfate (Ventolin) 1 puff INH DAILYP PRN PRN Reason: Shortness Of Breath Bupropion HCl (Wellbutrin) 75 mg PO BID [facility] Last Admin: 03/30/19 21:31 Dose: Not Given Documented by: Famotidine (Pepcid) 20 mg PO BID [facility] Last Admin: 03/30/19 21:31 Dose: Not Given Documented by: Furosemide (Lasix) 40 mg IV Q12 [facility] Last Admin: 03/30/19 21:36 Dose: 40 mg Documented by: Iron Carb/Multivit/[place]/Folic Acid (Multivitamin W/Minerals) 1 tab PO DAILY [facility] Last Admin: 03/30/19 09:58 Dose: 1 tab Documented by: Lactulose (Cephulac) 30 gm PO TID [facility] Last Admin: 03/30/19 21:32 Dose: Not Given Documented by: Lactulose (Cephulac) 200 gm VT Q6 [facility] Last Admin: 03/31/19 05:59 Dose: 200 gm Documented by: Nadolol (Corgard) 20 mg PO DAILY [facility] Last Admin: 03/30/19 10:02 Dose: 20 mg Documented by: Ondansetron HCl (Zofran) 4 mg IV Q4-6HP PRN PRN Reason: Nausea And Vomiting Last Admin: 03/31/19 06:47 Dose: 4 mg Documented by: Mometasone/Formoterol [Dulera 100 Mcg/5 Mcg Inhaler] 1 dose INH BIDP PRN PRN Reason: SHORTNESS OF BREATH Spironolactone (Aldactone) 100 mg PO DAILY [facility] Last Admin: 03/30/19 09:58 Dose: 100 mg Documented by: Thiamine HCl (Vitamin B1) 100 mg PO DAILY [facility] Last Admin: 03/30/19 09:58 Dose: 100 mg Documented by: Medical - PN: A/P - Time Spent With Patient Total time spent is greater than 50% in coordination of care (as documented) at patient's floor/unit and/or counseling patient: - Narrative A/P Narrative: Assessment: *Hepatic encephalopathy: Improving -improved on retention lactulose enemas, but did not have BM's on oral yesterday so enemas restarted last night with good results *Ascites/Peripheral edema: 2/2 above with underlying etoh cirrosis -s/p paracentesis (03/29) 6.5L, no SBP *Etoh cirrhosis w/portal HTN/Ascites/Anasarca/grade I eso varices: does not drink etoh anymore -follows with dr. Napoles -MELD=18(6%) *AFib w/intermittent RVR *COPD (2L prn daytime) *KARLENE on CPAP: *Chr LBP: *GERD: *Anxiety *Goals of care: family discussion monday Plan: -Continue lactulose/rifaximin -cont lasix/aldactone -on nadolol -home CPAP -switch PPI to H2-andres -TEDs/elevate legs while in bed -pt/ot -Hospice eval/further family discussions -ppx: lovenox/home H2 DNR Medical - PN: Qual - VTE Deep Vein Thrombosis/Pulmonary Embolism Present on Admission: No
[2019-03-31] MEDS: FUROSEMIDE 40 MG/4 ML VIAL IV SCH ×2 (08:50→20:35)
[2019-03-31] MEDS: MULTIVIT,THER IRON,CA,FA & MIN 1 TABLET PO SCH (08:50)
[2019-03-31] MEDS: SPIRONOLACTONE 25 MG TABLET PO SCH (08:50)
[2019-03-31] MEDS: RIFAXIMIN 550 MG TABLET PO SCH ×2 (08:50→20:35)
[2019-03-31] MEDS: NADOLOL 20 MG TABLET PO SCH (08:50)
[2019-03-31] MEDS: THIAMINE 100 MG TABLET PO SCH (08:50)
[2019-03-31] MEDS: buPROPion 75 MG TABLET PO SCH ×2 (08:51→20:35)
[2019-03-31] MEDS: FAMOTIDINE 20 MG TABLET PO SCH ×2 (10:23→20:35)
[2019-03-31] MEDS: LACTULOSE 20 GM/30 ML ORAL.SOL PO SCH ×7 (10:23→20:34)
[2019-03-31] MEDS ORDERED: PROCHLORPERAZINE 10 MG/2 ML VIAL IV PRN (12:48)
[2019-03-31] MEDS ORDERED: METOCLOPRAMIDE 10 MG/2 ML VIAL IV PRN (12:58)
[2019-04-01] MEDS: LACTULOSE 20 GM/30 ML ORAL.SOL PR SCH ×3 (01:07→13:07)
[2019-04-01 04:55] LABS: ALT/SGPT 50 U/l (0-40); AST/SGOT 53 U/l (0-37); Albumin 2.4 gm/dL (3.2-5.2); Albumin/Globulin Ratio 0.7 (1.0-2.3); Alkaline Phosphatase 201 U/L (39-117); Bilirubin,Direct 0.5 mg/dL (0.0-0.3); Bilirubin,Total 1.3 mg/dL (0.0-1.0); Blood Urea Nitrogen 17 mg/dl (6-20); Calcium 7.8 mg/dl (8.6-10.4); Carbon Dioxide 25 mmol/L (22-30); Chloride 96 mmol/L (96-108); Globulin 3.4 gm/dL (2.2-3.7); Glomerular Filtration Rate 103; Glucose 109 mg/dL (70-105); Lactate Dehydrogenase 286 U/L (94-250); Phosphorous 2.6 mg/dL (2.7-4.5); Triglycerides 60 mg/dl (<150); Uric Acid 5.2 mg/dL (2.5-8.0)
[2019-04-01] MEDS ORDERED: SODIUM CHLORIDE 1 GM TABLET PO ONE (07:51)
[2019-04-01] MEDS ORDERED: POTASSIUM CHLORIDE 20 MEQ TABLET PO ONE (07:52)
--- NOTE | 2019-04-01 07:52 | Internal Med Progress Note ---
Medical - PN: Subj Patient information: Note initiated : 04/01/19 at 7:50 am Service Date, if different from initiated Date: [] Patient: Dallas Darling a 58 y/o M admitted on 03/29/19 for confusion. Chief Complaint: [] Interval history: Mr. Darling is a 58 year old M with a known history of alcoholic cirrhosis with e nd-stage liver disease with recurrent ascites requiring paracentesis and recent hospitalization at [facility] for SBP/hepatic encephalopathy who was discharged after 9-day hospitalization on 03/27 (apparently left AMA and had his friend take him home as he did not want to go to SNF.) He was subsequently brought in with increasing weakness confusion by his caregiver to [place] [facility] on 03/28 and was sent discharged to care facility. He presents with an a few hours of transfer to [facility] [place] to [facility] with increasing lethargy altered mental status and inability to come to care facility take care of this very complex patient. Initial work-up in the ER was consistent with hepatic encephalopathy. Patient was extremely confused. Ammonia over 120, negative white count. CT scan reviewed from [place] March 19. He has generalized lymphedema/anasarca. In light of patient's clinical condition, advanced liver disease and recurrent hospitalization/paracentesis and extremely poor quality of life, ER physician Dr. Hudson discussed case with patient's daughter who is also the power of collections attorney Jose Darling. Daughter indicated that she has not had a discussion about hospice/palliative care and would want to pursue that route. Subsequently hospitalist service was consulted At the time of evaluation patient is barely responsive. Does not appear to be in distress. Nonlabored breathing with generalized lymphedema. 03/30-patient doing better. Able to open eyes however and not following commands. Incomprehensible speech. Status post 2 doses of retention enema fol lowed by oral rifaximin/lactulose. Started on nadolol. Status post paracentesis with 6000 cc fluid removal. Cell count 150 with 50% neutrophils. DC antibiotic coverage. Continue diuresis. Discussed patient's clinical status with family including sister and daughter. Family of the opinion that patient would benefit from end-of-life palliation due to his continued deterioration and multiple hospitalization with extremely poor quality of life. Family conference on Monday for initiation of hospice. Case management to coordinate. 03/31 Patient was on oral lactulose 3 times daily yesterday with no bowel movements decreased mentation was started on lactulose enemas last night with good r esponse. Likely transition back to oral but with increased frequency to obtain stools 2 to 3/day. Patient has some nausea but chills little bit of pain over the paracentesis site but otherwise no new complaints. Family was in last night to see him. 04/01 No overnight events. Having bowel movements. Transition from enemas to oral lactulose yesterday. Patient awake this morning and communicating appropriately. Review of Systems: denies headache/fever/vomiting/chest or abdominal pain/cough/dyspnea/diarrhea. Otherwise see above. - Constitutional Vitals: Vital Signs Temp Pulse Resp BP Pulse Ox 97.6 F 91 H 16 111/76 96 04/01/19 04:01 03/29/19 20:01 04/01/19 04:01 04/01/19 04:01 04/01/19 04:01 Period Temp Pulse Resp BP Sys/Estrella Pulse Ox Last 24 Hr 97.1 F-99.2 F 16-16 88-111/57-76 92-97 Intake and Output 03/31/19 04/01/19 04/01/19 21:59 05:59 13:59 Intake Total 800 240 Output Total 450 552 Balance 350 -312 Weight 101.605 kg Intake & Output: Intake & Output 03/31/19 04/01/19 04/01/19 21:59 05:59 13:59 Intake Total 800 240 Output Total 450 552 Balance 350 -312 Weight 101.605 kg Intake: Oral 800 240 Output: Void Amount 450 550 # of times incontinent of urine 2 Other: Meal Lunch snack Percent of Meal Consumed 25% 100% Feeding Ability Total Assistance Total Assistance Urine Appearance Clear Clear Urine Color [place] Bright Yellow Stool Size Moderate Moderate Stool Color Brown Brown Stool Consistency Liquid Liquid Watery Watery Loose Loose # Bowel Movements 1 Exam: General: Alert, Awake, No acute Distress Eyes/N/T: EOMI, Head/Neck: neck supple, CV: RRR, No murmurs, Pulm: Clear b/l, no wheezing/rhonchi/rales Abd: soft, distended, +BS x4 Ext: no clubbing/cyanosis, 1+ b/l LE edema Neuro: Alert, no focal deficits, moves all extremities, Skin: warm/dry Medical - PN: Obj Da - Labs CBC & Chem 7: 03/31/19 04:30 04/01/19 04:00 Labs: Abnormal Lab Results 04/01/19 03/31/19 03/31/19 04:00 04:30 04:30 RBC Hgb Hct RDW Plt Count Seg Neutrophils % Lymphocytes % Platelet Estimate RBC Morphology Polychromasia Hypochromasia Anisocytosis PT 18.0 H INR 1.5 H Sodium 132 L Potassium 3.1 L Carbon Dioxide BUN Creatinine Glucose 109 H Calcium 7.8 L Phosphorus 2.6 L Total Bilirubin 1.3 H Direct Bilirubin 0.5 H GGT 162 H AST 53 H ALT 50 H Alkaline Phosphatase 201 H Ammonia 93 H Lactate Dehydrogenase 286 H Total Protein 5.8 L Albumin 2.4 L Albumin/Globulin Ratio 0.7 L 03/31/19 03/31/19 03/30/19 04:30 04:30 16:46 RBC 4.00 L Hgb 11.1 L Hct 34.2 L RDW 18.8 H Plt Count 102 L Seg Neutrophils % Lymphocytes % 14 L Platelet Estimate Decreased A RBC Morphology Abnorm A Polychromasia 1+ A Hypochromasia 1+ A Anisocytosis 1+ A PT INR Sodium Potassium Carbon Dioxide BUN Creatinine 0.6 L Glucose Calcium 8.0 L Phosphorus Total Bilirubin 1.5 H Direct Bilirubin 0.5 H GGT 147 H AST 44 H ALT 50 H Alkaline Phosphatase 184 H Ammonia 174 H Lactate Dehydrogenase Total Protein 5.5 L Albumin 2.5 L Albumin/Globulin Ratio 0.8 L 03/30/19 03/30/19 03/29/19 03:46 03:46 13:00 RBC 3.79 L Hgb 10.7 L Hct 32.6 L RDW 18.5 H Plt Count 93 L Seg Neutrophils % 81 H Lymphocytes % 8 L Platelet Estimate Decreased A RBC Morphology Polychromasia Hypochromasia Anisocytosis 1+ A PT 17.9 H INR 1.5 H Sodium Potassium Carbon Dioxide BUN 21 H Creatinine 0.6 L Glucose Calcium 8.1 L Phosphorus Total Bilirubin 1.4 H Direct Bilirubin 0.6 H GGT 164 H AST 52 H ALT 60 H Alkaline Phosphatase 202 H Ammonia Lactate Dehydrogenase 263 H Total Protein Albumin 2.7 L Albumin/Globulin Ratio 0.8 L 03/29/19 13:00 RBC Hgb Hct RDW Plt Count Seg Neutrophils % Lymphocytes % Platelet Estimate RBC Morphology Polychromasia Hypochromasia Anisocytosis PT INR Sodium 132 L Potassium Carbon Dioxide 21 L BUN 24 H Creatinine Glucose Calcium 8.1 L Phosphorus Total Bilirubin 1.9 H Direct Bilirubin 0.7 H GGT 184 H AST 59 H ALT 73 H Alkaline Phosphatase 226 H Ammonia Lactate Dehydrogenase 323 H Total Protein Albumin 2.4 L Albumin/Globulin Ratio 0.6 L Meds: Medications Albuterol Sulfate (Ventolin) 1 puff INH DAILYP PRN PRN Reason: Shortness Of Breath Bupropion HCl (Wellbutrin) 75 mg PO BID [facility] Last Admin: 03/31/19 20:35 Dose: 75 mg Documented by: Famotidine (Pepcid) 20 mg PO BID [facility] Last Admin: 03/31/19 20:35 Dose: 20 mg Documented by: Furosemide (Lasix) 40 mg IV Q12 [facility] Last Admin: 03/31/19 20:35 Dose: 40 mg Documented by: Iron Carb/Multivit/Acid Cutter/Folic Acid (Multivitamin W/Minerals) 1 tab PO DAILY [facility] Last Admin: 03/31/19 08:50 Dose: 1 tab Documented by: Lactulose (Cephulac) 200 gm CA Q6 [facility] Last Admin: 04/01/19 05:07 Dose: Not Given Documented by: Lactulose (Cephulac) 30 gm PO QID [facility] Last Admin: 03/31/19 20:34 Dose: 30 gm Documented by: Metoclopramide HCl (Reglan) 5 mg IV Q6HP PRN PRN Reason: Nausea And Vomiting Nadolol (Corgard) 20 mg PO DAILY [facility] Last Admin: 03/31/19 08:50 Dose: 20 mg Documented by: Ondansetron HCl (Zofran) 4 mg IV Q4-6HP PRN PRN Reason: Nausea And Vomiting Last Admin: 03/31/19 22:32 Dose: 4 mg Documented by: Mometasone/Formoterol [Dulera 100 Mcg/5 Mcg Inhaler] 1 dose INH BIDP PRN PRN Reason: SHORTNESS OF BREATH Prochlorperazine (Compazine) 5 mg IV Q4-6HP PRN PRN Reason: Nausea And Vomiting Last Admin: 03/31/19 13:02 Dose: 5 mg Documented by: Spironolactone (Aldactone) 100 mg PO DAILY [facility] Last Admin: 03/31/19 08:50 Dose: 100 mg Documented by: Thiamine HCl (Vitamin B1) 100 mg PO DAILY [facility] Last Admin: 03/31/19 08:50 Dose: 100 mg Documented by: Medical - PN: A/P - Time Spent With Patient Total time spent is greater than 50% in coordination of care (as documented) at patient's floor/unit and/or counseling patient: - Narrative A/P Narrative: Assessment: *Hepatic encephalopathy: Improved -initially required retention lactulose enemas, now on PO lactulose to titrate to 2-3 BM's/day *Ascites/Peripheral edema: 2/2 above with underlying etoh cirrosis -s/p paracentesis (03/29) 6.5L, no SBP *Etoh cirrhosis w/portal HTN/Ascites/Anasarca/grade I eso varices: does not drink etoh anymore -follows with dr. Napoles -MELD=18(6%) *AFib w/intermittent RVR *COPD (2L prn daytime) *KARLENE on CPAP: *Chr LBP: *GERD: *Anxiety *Goals of care: family discussion monday Plan: -Continue lactulose/rifaximin -cont lasix/aldactone -on nadolol -home CPAP -switched PPI to H2-andres -TEDs/elevate legs while in bed -pt/ot -Hospice eval/further family discussions -ppx: lovenox/home H2 DNR Medical - PN: Qual - VTE Deep Vein Thrombosis/Pulmonary Embolism Present on Admission: No
[2019-04-01] MEDS: LACTULOSE 20 GM/30 ML ORAL.SOL PO SCH ×4 (08:13→21:03)
[2019-04-01] MEDS: buPROPion 75 MG TABLET PO SCH ×2 (08:13→21:03)
[2019-04-01] MEDS: RIFAXIMIN 550 MG TABLET PO SCH ×2 (08:14→21:13)
[2019-04-01] MEDS: SPIRONOLACTONE 25 MG TABLET PO SCH (08:14)
[2019-04-01] MEDS: THIAMINE 100 MG TABLET PO SCH (08:14)
[2019-04-01] MEDS: MULTIVIT,THER IRON,CA,FA & MIN 1 TABLET PO SCH (08:14)
[2019-04-01] MEDS: NADOLOL 20 MG TABLET PO SCH (08:14)
[2019-04-01] MEDS: FUROSEMIDE 40 MG/4 ML VIAL IV SCH (08:15)
[2019-04-01] MEDS: FAMOTIDINE 20 MG TABLET PO SCH ×2 (08:15→21:13)
[2019-04-01] MEDS ORDERED: ENOXAPARIN 40 MG/0.4 ML SYRINGE SQ SCH (09:00)
--- NOTE | 2019-04-01 10:00 | Discharge Summary ---
Medical - DS: Prov Patient information: Note initiated : 04/01/19 at 9:52 am Service Date, if different from initiated Date: [] Patient: Dallas Darling 58 y/o M admitted on 03/29/19 for confusion. Chief Complaint: [] Date of admission: 03/29/19 01:06 Discharge date: 04/09/19 Primary care physician: SOFÍA Hopkins Consults: 03/29/19 00:05 Consult to Physician [CONS] Routine Comment: Consulting Provider: Ariel Brewer Reason For Exam: Physician to Consult Medical - DS: Meds - Discharge Medications Prescriptions: Gabapentin [Neurontin] 300 mg PO QHS #1 cap Lactulose [Cephulac] 20 gm PO QID #10 Nadolol [Corgard] 20 mg PO DAILY #30 tab Famotidine [Pepcid] 10 mg PO BID #60 tab Active and Home Medications: Home Medications diltiazem HCl 120 mg capsule,24 hr,extended release 120 mg PO QDAY 01/09/18 [History Confirmed 03/29/19 Last Taken 02/27/19 09:00] gabapentin 300 mg capsule 300 mg PO TID 01/09/18 [History Confirmed 03/29/19 Last Taken 02/27/19 19:30] multivitamin 1 tab PO QDAY 01/09/18 [History Confirmed 03/29/19 Last Taken 02/27/19 09:00] thiamine HCl (vitamin B1) 100 mg tablet 100 mg PO QDAY 01/09/18 [History Confirmed 03/29/19 Last Taken 02/27/19 09:00] Mometasone/Formoterol [Dulera 100 Mcg/5 Mcg Inhaler] 2 puff IH BID PRN 01/19/18 [History Confirmed 03/29/19 Last Taken 01/24/18] Lactulose [Cephulac] 20 gm PO BID 02/27/19 [History Confirmed 03/29/19 Last Taken 02/27/19 09:00] Rifaximin [Xifaxan] 550 mg PO BID 02/27/19 [History Confirmed 03/29/19 Last Taken 02/27/19 19:30] buPROPion [Wellbutrin] 75 mg PO BID 02/27/19 [History Confirmed 03/29/19 Last Taken 02/27/19 19:30] Furosemide [Lasix] 40 mg PO DAILY #30 tab 03/01/19 [Rx Confirmed 03/29/19 Last Taken Unknown] Spironolactone [Aldactone] 100 mg PO DAILY #30 tab 03/01/19 [Rx Confirmed 03/29/19 Last Taken Unknown] Albuterol Sulfate [Proair Respiclick] 90 mcg IH ONCE PRN 03/28/19 [History Confirmed 03/29/19 Last Taken Unknown] Omeprazole [PriLOSEC] 20 mg PO ONCE 03/28/19 [History Confirmed 03/29/19 Last Taken Unknown] Home Medications diltiazem HCl 120 mg capsule,24 hr,extended release 120 mg PO QDAY 01/09/18 [History Confirmed 03/29/19 Last Taken 02/27/19 09:00] multivitamin 1 tab PO QDAY 01/09/18 [History Confirmed 03/29/19 Last Taken 02/27/19 09:00] thiamine HCl (vitamin B1) 100 mg tablet 100 mg PO QDAY 01/09/18 [History Confirmed 03/29/19 Last Taken 02/27/19 09:00] Mometasone/Formoterol [Dulera 100 Mcg/5 Mcg Inhaler] 2 puff IH BID PRN 01/19/18 [History Confirmed 03/29/19 Last Taken 01/24/18] Rifaximin [Xifaxan] 550 mg PO BID 02/27/19 [History Confirmed 03/29/19 Last Taken 02/27/19 19:30] buPROPion [Wellbutrin] 75 mg PO BID 02/27/19 [History Confirmed 03/29/19 Last Taken 02/27/19 19:30] Furosemide [Lasix] 40 mg PO DAILY #30 tab 03/01/19 [Rx Confirmed 03/29/19 Last Taken Unknown] Spironolactone [Aldactone] 100 mg PO DAILY #30 tab 03/01/19 [Rx Confirmed 03/29/19 Last Taken Unknown] Albuterol Sulfate [Proair Respiclick] 90 mcg IH ONCE PRN 03/28/19 [History Confirmed 03/29/19 Last Taken Unknown] Famotidine [Pepcid] 10 mg PO BID #60 tablet 04/01/19 [Rx Last Taken Unknown] Gabapentin [Neurontin] 300 mg PO QHS #1 capsule 04/01/19 [Rx Last Taken Unknown] Lactulose [Cephulac] 20 gm PO QID #10 04/01/19 [Rx Last Taken Unknown] Nadolol [Corgard] 20 mg PO DAILY #30 tablet 04/01/19 [Rx Last Taken Unknown] Medical - DS: Hosp Hospital Course: Mr. Darling is a 58 year old M with a known history of alcoholic cirrhosis with end-stage liver disease with recurrent ascites requiring paracentesis and recent hospitalization at [facility] for SBP/hepatic encephalopathy who was discharged after 9-day hospitalization on 03/27 (apparently left AMA and had his friend take him home as he did not want to go to SNF.) He was subsequently brought in with increasing weakness confusion by his caregiver to [place] [facility] on 03/28 and was sent discharged to care facility. He presents with an a few hours of transfer to [facility] to [facility] with increasing lethargy altered mental status and inability to come to care facility take care of this very complex patient. Initial work-up in the ER was consistent with hepatic encephalopathy. Patient was extremely confused. Ammonia over 120, negative white count. CT scan reviewed from [place] March 19. He has generalized lymphedema/anasarca. In light of patient's clinical condition, advanced liver disease and recurrent hospitalization/paracentesis and extremely poor quality of life, ER physician Dr. Hudson discussed case with patient's daughter who is also the power of assistant attorney general Jose Darling. Daughter indicated that she has not had a discussion about hospice/palliative care and would want to pursue that route. Subsequently hospitalist service was consulted At the time of evaluation patient is barely responsive. Does not appear to be in distress. Nonlabored breathing with generalized lymphedema. 03/30-patient doing better. Able to open eyes however and not following commands. Incomprehensible speech. Status post 2 doses of retention enema followed by oral rifaximin/lactulose. Started on nadolol. Status post paracentesis with 6000 cc fluid removal. Cell count 150 with 50% neutrophils. DC antibiotic coverage. Continue diuresis. Discussed patient's clinical status with family including sister and daughter. Family of the opinion that patient would benefit from end-of-life palliation due to his continued deterioration and multiple hospitalization with extremely poor quality of life. Family conference on Monday for initiation of hospice. Case management to coordinate. 03/31 Patient was on oral lactulose 3 times daily yesterday with no bowel movements decreased mentation was started on lactulose enemas last night with good response. Likely transition back to oral but with increased frequency to obtain stools 2 to 3/day. Patient has some nausea but chills little bit of pain over the paracentesis site but otherwise no new complaints. Family was in last night to see him. 04/01 No overnight events. Having bowel movements. Transition from enemas to oral lactulose yesterday. Patient awake this morning and communicating appropriately. Had another family discussion today. Will transition home with hospice. This is set up for tomorrow morning. Discharge diagnosis: Hepatic encephalopathy alcoholic cirrhosis with ascites Secondary discharge diagnosis: H fibrillation COPD obstructive sleep apnea chronic pain GERD anxiety goals of care discussed with family - Time Spent with Patient Total time spent providing and/or coordinating discharge services: Greater than 30 minutes Medical - DS: Exam - Constitutional Vitals: Vital Signs Temp Resp BP Pulse Ox 04/01/19 04:01 97.6 F 16 111/76 96 04/01/19 00:01 97.1 F 16 110/66 97 03/31/19 20:01 98.1 F 16 107/66 93 03/31/19 20:00 97 03/31/19 16:01 98.2 F 16 108/72 92 03/31/19 14:35 99.2 F H 95 03/31/19 12:02 97/64 03/31/19 12:01 88/57 Intake and Output 03/31/19 04/01/19 04/01/19 21:59 05:59 13:59 Intake Total 800 240 Output Total 450 552 Balance 350 -312 Intake: Oral 800 240 Output: Void Amount 450 550 # of times incontinent of urine 2 Other: Meal Lunch snack Percent of Meal Consumed 25% 100% Feeding Ability Total Assistance Total Assistance Urine Appearance Clear Clear Urine Color [place] Bright Yellow Stool Size Moderate Moderate Stool Color Brown Brown Stool Consistency Liquid Liquid Watery Watery Loose Loose # Bowel Movements 1 Weight 101.605 kg Medical - DS: Data Labs on day of discharge: Labs from last 24 hours 04/01/19 04/01/19 04:00 04:00 Sodium 132 L Potassium 3.1 L Chloride 96 Carbon Dioxide 25 Anion Gap 11.0 BUN 17 Creatinine 0.7 GFR Calculation 103 Glucose 109 H Uric Acid 5.2 Calcium 7.8 L Phosphorus 2.6 L Magnesium 1.9 Total Bilirubin 1.3 H Direct Bilirubin 0.5 H GGT 162 H AST 53 H ALT 50 H Alkaline Phosphatase 201 H Ammonia 50 Lactate Dehydrogenase 286 H Total Protein 5.8 L Albumin 2.4 L Globulin 3.4 Albumin/Globulin Ratio 0.7 L Triglycerides 60 Preliminary micro results at discharge 03/29/19 07:54 Body Fluid Culture - Preliminary Abdominal Fluid Medical - DS: A/P - Patient/Caregiver Discharge Instructions Activity: as per physical therapy Diet: Regular Diet Prescriptions: Gabapentin [Neurontin] 300 mg PO QHS #1 cap Lactulose [Cephulac] 20 gm PO QID #10 Nadolol [Corgard] 20 mg PO DAILY #30 tab Famotidine [Pepcid] 10 mg PO BID #60 tab - Follow up Plan Follow up with: Humberto Tripathi ARNP [Primary Care Provider] - Armando Napoles MD [Physician] - Disposition: Hospice - Home Prognosis: Serious Rehab Potential: Undetermined Overall status at discharge: other (near baseline currently, but tenuous state, going home on hospice) Medical - DS: Qual - VTE Deep Vein Thrombosis/Pulmonary Embolism Present on Admission: No
--- NOTE | 2019-04-01 14:13 | Non-GYN Cytology Report ---
NON MINE PROMOTOR SPECIMEN NG DX CATEGORY Negative MICROSCOPIC DIAGNOSIS PERITONEUM, PARACENTESIS: -- NO ATYPICAL OR MALIGNANT CELLS IDENTIFIED. -- MESOTHELIAL CELLS WITH ACUTE AND CHRONIC INFLAMMATION, SEE COMMENT. (EBD:keren) COMMENT: The patient's history of cirrhosis and presentation with hepatic encephalopathy is noted. No atypical or malignant cells are identified. MICROSCOPIC DESCRIPTION Cytologic preparations of the peritoneal fluid show single and clustered mesothelial cells, some with reactive features, in a background of mixed acute (neutrophilic) and chronic (lymphohistiocytic) inflammation. No atypical or malignant cells are identified. (EBD:keren) EXTERNAL COMMENT ~950 mL fresh cloudy yellow fluid: 1 thinprep, 1 Diff Quik, 1 pap slide, 1 Santos Giemsa, 1 cell block Electronically Signed by: Yessenia Singer M.D.
[2019-04-01] MEDS ORDERED: MELATONIN 3 MG TABLET PO PRN (18:26)
[2019-04-01] MEDS ORDERED: diphenhydrAMINE 25 MG CAPSULE PO SCH (21:00)
[2019-04-02 06:11] LABS: ALT/SGPT 49 U/l (0-40); AST/SGOT 64 U/l (0-37); Albumin/Globulin Ratio 0.6 (1.0-2.3); Alkaline Phosphatase 187 U/L (39-117); Bilirubin,Direct 0.4 mg/dL (0.0-0.3); Bilirubin,Total 1.1 mg/dL (0.0-1.0); Blood Urea Nitrogen 16 mg/dl (6-20); Calcium 7.7 mg/dl (8.6-10.4); Carbon Dioxide 27 mmol/L (22-30); Chloride 99 mmol/L (96-108); Globulin 3.1 gm/dL (2.2-3.7); Glomerular Filtration Rate 109; Glucose 97 mg/dL (70-105); Lactate Dehydrogenase 278 U/L (94-250); Phosphorous 2.4 mg/dL (2.7-4.5); Triglycerides 48 mg/dl (<150); Uric Acid 4.8 mg/dL (2.5-8.0)
[2019-04-02] MEDS: LACTULOSE 20 GM/30 ML ORAL.SOL PO SCH (08:11)
[2019-04-02] MEDS: RIFAXIMIN 550 MG TABLET PO SCH (08:12)
[2019-04-02] MEDS: SPIRONOLACTONE 25 MG TABLET PO SCH (08:12)
[2019-04-02] MEDS: FAMOTIDINE 20 MG TABLET PO SCH (08:12)
[2019-04-02] MEDS: buPROPion 75 MG TABLET PO SCH (08:13)
[2019-04-02] MEDS: NADOLOL 20 MG TABLET PO SCH (08:13)
[2019-04-02] MEDS: THIAMINE 100 MG TABLET PO SCH (08:13)
[2019-04-02] MEDS: MULTIVIT,THER IRON,CA,FA & MIN 1 TABLET PO SCH (08:13)
== END 2019-04-02 09:03 | disposition hospice, home (50) | DRG 433 ==
LOC: ICU 21:42 → ED 21:42 → ICU 03-29 01:06 → OBSVTOIN 03-29 01:06 → ICU 04-01 11:55
PROVIDERS: ADMIT Internal Medicine; ATTEND Internal Medicine